=== PATIENT | male | born 1940 | race Caucasian/White ===

== ENCOUNTER 2016-08-04 13:58 | Emergency (ER) | payer MEDICARE, OTHER ==
[2016-08-04 14:06] VITALS: BP 153/82
--- NOTE | 2016-08-04 14:14 | ER Document Report ---
ED Medical Screen (RME) - General Stated Complaint: HEAD INJURY FROM FALL Mode of Arrival: Ambulatory Information source: Patient Notes: Pt presents to the emergency department with laceration to the top of his head. Patient was standing on a chair and fell over and hit his head. No change in LOC. Reports tetanus is up-to-date. I have greeted and performed a rapid initial assessment of this patient. A comprehensive ED assessment and evaluation of the patient, analysis of test results and completion of the medical decision making process will be conducted by additional ED providers. TRAVEL OUTSIDE OF THE [place] IN LAST 30 DAYS: No - Related Data Allergies/Adverse Reactions: No Known Allergies Allergy (Verified 12/08/15 08:26) Past Medical History - Past Medical History Cardiac Medical History: Reports: Hx Heart Attack, Hx Hypertension Denies: Hx Coronary Artery Disease Pulmonary Medical History: Reports: Hx Asthma Denies: Hx Bronchitis, Hx COPD, Hx Pneumonia Neurological Medical History: Denies: Hx Cerebrovascular Accident, Hx Seizures Musculoskeltal Medical History: Reports Hx Arthritis Past Surgical History: Denies: Hx Pacemaker - Immunizations Hx Diphtheria, Pertussis, Tetanus Vaccination: No Physical Exam - Vital signs Vitals: Temp Pulse Resp BP Pulse Ox 98.1 F 102 H 14 153/82 H 97 08/04/16 14:05 08/04/16 14:05 08/04/16 14:05 08/04/16 14:05 08/04/16 14:05 Course - Vital Signs Vital signs: Temp Pulse Resp BP Pulse Ox 98.1 F 102 H 14 153/82 H 97 08/04/16 14:05 08/04/16 14:05 08/04/16 14:05 08/04/16 14:05 08/04/16 14:05
--- NOTE | 2016-08-04 18:00 | ER Document Report ---
ED Head/Face/Scalp Injury - General Chief Complaint: Laceration Stated Complaint: HEAD INJURY FROM FALL Mode of Arrival: Ambulatory Notes: The patient is a 75-year-old male who presents after he fell off 2 steps of a ladder and hit the top of his head on a sharp table corner. He is not on any blood thinners and he did not have LOC. Denies heavy bleeding, numbness, tingling, headache, blurry vision, chest pain, shortness of breath, syncope or neck pain. TRAVEL OUTSIDE OF THE [place] IN LAST 30 DAYS: No - Related Data Allergies/Adverse Reactions: No Known Allergies Allergy (Verified 08/04/16 14:13) Past Medical History - General Information source: Patient - Social History Smoking Status: Never Smoker Chew tobacco use (# tins/day): No Frequency of alcohol use: None Drug Abuse: None Family History: Reviewed & Not Pertinent Patient has suicidal ideation: No Patient has homicidal ideation: No - Past Medical History Cardiac Medical History: Reports: Hx Heart Attack, Hx Hypertension Denies: Hx Coronary Artery Disease Pulmonary Medical History: Reports: Hx Asthma Denies: Hx Bronchitis, Hx COPD, Hx Pneumonia Neurological Medical History: Denies: Hx Cerebrovascular Accident, Hx Seizures Renal/ Medical History: Denies: Hx Peritoneal Dialysis Musculoskeltal Medical History: Reports Hx Arthritis Past Surgical History: Denies: Hx Pacemaker - Immunizations Hx Diphtheria, Pertussis, Tetanus Vaccination: No Hx Pneumococcal Vaccination: 05/27/12 Review of Systems - Review of Systems Notes: REVIEW OF SYSTEMS: CONSTITUTIONAL: -fevers, -chills EENT: -eye pain, -difficulty swallowing, -nasal congestion CARDIOVASCULAR:-chest pain, -syncope. RESPIRATORY: -cough, -SOB GASTROINTESTINAL: -abdominal pain, -nausea, -vomiting, -diarrhea GENITOURINARY: -dysuria, -hematuria MUSCULOSKELETAL: -back pain, -neck pain SKIN: +scalp laceration, -rash or skin lesions. HEMATOLOGIC: -easy bruising or bleeding. LYMPHATIC: -swollen, enlarged glands. NEUROLOGICAL: -altered mental status or loss of consciousness, -headache, - neurologic symptoms PSYCHIATRIC: -anxiety, -depression. ALL OTHER SYSTEMS REVIEWED AND NEGATIVE. Physical Exam - Vital signs Vitals: Temp Pulse Resp BP Pulse Ox 98.1 F 102 H 14 153/82 H 97 08/04/16 14:05 08/04/16 14:05 08/04/16 14:05 08/04/16 14:05 08/04/16 14:05 - Notes Notes: PHYSICAL EXAMINATION: GENERAL: Well-appearing, well-nourished and in no acute distress. HEAD: 4 cm linear laceration over top of scalp, no active bleeding EYES: Pupils equal round and reactive to light, extraocular movements intact, sclera anicteric, conjunctiva are normal. ENT: nares patent, oropharynx clear without exudates. Moist mucous membranes. NECK: Normal range of motion, supple without lymphadenopathy LUNGS: Breath sounds clear to auscultation bilaterally and equal. No wheezes rales or rhonchi. HEART: Regular rate and rhythm without murmurs ABDOMEN: Soft, nontender, normoactive bowel sounds. No guarding, no rebound. No masses appreciated. EXTREMITIES: Normal range of motion, no pitting or edema. No cyanosis. NEUROLOGICAL: Cranial nerves grossly intact. Normal speech, normal gait. Normal sensory, motor, and reflex exams. PSYCH: Normal mood, normal affect. Course - Re-evaluation Re-evalutation: Head CT does not show any acute intracranial abnormalities. Tetanus is up-to- date. Superficial linear laceration on scalp repaired with Dermabond because patient did not want sutures or frank. No neurologic symptoms and he did not have LOC. Fall strictly mechanical in nature. Given return precautions and he understands. - Vital Signs Vital signs: Temp Pulse Resp BP Pulse Ox 98.1 F 102 H 14 153/82 H 97 08/04/16 14:05 08/04/16 14:05 08/04/16 14:05 08/04/16 14:05 08/04/16 14:05 Procedures - Laceration/Wound Repair Right Upper Head Wound length (cm): 4 Wound's Depth, Shape: Superficial Wound explored: Clean Irrigated w/ Saline (mLs): 250 Wound Repaired With: Dermabond Layer Closure?: No Post-procedure NV exam normal: Yes Complications: No Discharge - Discharge Clinical Impression: Laceration of scalp Qualifiers: Encounter type: initial encounter Qualified Code(s): S01.01XA - Laceration without foreign body of scalp, initial encounter Head injury Qualifiers: Encounter type: initial encounter Qualified Code(s): S09.90XA - Unspecified injury of head, initial encounter Condition: Good Disposition: HOME, SELF-CARE Additional Instructions: NON-SUTURED LACERATION: Your laceration did not require suturing. Some lacerations cannot be sutured because of increased infection risk, while others simply don't need stitches because they are shallow or very short. Your injury should be protected while it heals. Usually complete healing takes 10 to 14 days. Keep the dressing clean and dry, and change it every day. If you notice increasing pain, redness, swelling, drainage, or tender lumps in the armpit or groin above the injury, infection may be present. You should call the doctor at once. SOAP CLEANSING: Gently wash the wound daily using a mild soap (like Ivory, Phisoderm, Neutrogena). Use warm water, rubbing gently until all debris, ooze, and crusting have been washed from the wound. Allow to dry briefly (about 10 minutes) after cleaning. Repeat this cleansing at least three times a day for the first two days and then once or twice a day. ANTIBIOTIC OINTMENT PROTECTION: Your wounds are such that dressing them is not practical or optional. After cleansing, you should apply a thin coating of antibiotic ointment ( Bacitracin, not Neosporin) to the wounds at least three times daily. This lessens infection risk, and may decrease the amount of scarring. Use a q-tip or dull butter knife, not your finger, to apply this ointment. Any debris or ooze which builds up in the ointment should be gently rubbed off with a sterile gauze pad. Harder crusting may need to be gently scrubbed off with a clean wash cloth with soap and warm water, perhaps applying a warm, wet wash cloth to the wound for ten minutes first. Development of redness, severe itching, or blistering may mean allergy to the ointment. See the doctor. FOLLOW-UP CARE: If you have been referred to another physician for follow-up care, call that physicians office for an appointment as you were instructed. If you experience a significant change in your laceration, or if you are concerned there may be an infection (swelling, redness, drainage, increasing tenderness, red streaks, tender lumps in the armpit or groin above the laceration, or fever) , return to the Emergency Department immediately re-evaluation. Referrals: CASSIE ARGUETA MD [Primary Care Provider] - Follow up as needed
== END 2016-08-04 18:10 | disposition home or self-care (01) ==
LOC: ER 13:58
PROC: 0HQ0XZZ Repair Scalp Skin, External Approach (ICD-10-PCS; principal; 2016-08-04)
DX: S09.90XA Unspecified injury of head, initial encounter (principal); S01.01XA Laceration without foreign body of scalp, initial encounter; W19.XXXA Unspecified fall, initial encounter
CPT/HCPCS: 70450; 99283

== ENCOUNTER 2016-09-12 06:50 | Day surgery (SDC) | payer MEDICARE, OTHER ==
[~2016-09-12 06:50] MED LIST: KETOROLAC TROMETHAMINE 0.45% 4 DROP/0.4 ML DROPERETTE OD PRN
[2016-09-12] MEDS ORDERED: TOBRAMYCIN SULFATE/DEXAMETH OPH OINTMENT 3.5 GM ONE (07:12)
[2016-09-12] MEDS ORDERED: CHONDR SU A NA/HYALUR INTRAOC KIT (SURGICARE) ONE (07:12)
[2016-09-12] MEDS ORDERED: LIDOCAINE 1% INJ-PF (10 MG/ML) 30 ML SDV ONE (07:12)
[2016-09-12] MEDS ORDERED: EPINEPHRINE INJ/PF 1 MG/1 ML AMPULE ONE (07:12)
[2016-09-12] MEDS: TETRACAINE HCL 0.5% OPH SOLN 0.6 ML DROPERETTE OD PRN ×3 (07:15→07:49)
[2016-09-12] MEDS: TROPICAMIDE 1% OPH SOLN 3 ML OD PRN ×3 (07:16→07:38)
[2016-09-12] MEDS: CYCLOPENTOLATE 0.2%/PHENYLEPHRINE 1% OPH SOLN 2 ML OD PRN ×3 (07:16→07:39)
[2016-09-12] MEDS: BESIFLOXACIN HCL 0.6% OPH SUSP 5 ML BOTTLE OD PRN ×3 (07:16→08:13)
[2016-09-12] MEDS ORDERED: FENTANYL CITRATE INJ/PF 100 MCG/2 ML AMPUL ONE (07:38)
[2016-09-12] MEDS ORDERED: MIDAZOLAM 2 MG/2 ML INJ ONE (07:38)
== END 2016-09-12 08:49 | disposition home or self-care (01) ==
LOC: SC 06:50
PROVIDERS: ATTEND Ophthalmology
PROC: 08RJ3JZ Replacement of Right Lens with Synthetic Substitute, Percutaneous Approach (ICD-10-PCS; principal; 2016-09-12 07:45)
DX: H25.11 Age-related nuclear cataract, right eye (principal); J44.9 Chronic obstructive pulmonary disease, unspecified; I25.10 Atherosclerotic heart disease of native coronary artery without angina pectoris; K21.9 Gastro-esophageal reflux disease without esophagitis; E78.00 Pure hypercholesterolemia, unspecified; M19.90 Unspecified osteoarthritis, unspecified site; E05.90 Thyrotoxicosis, unspecified without thyrotoxic crisis or storm; I10 Essential (primary) hypertension; Z79.51 Long term (current) use of inhaled steroids; Z79.82 Long term (current) use of aspirin; Z79.899 Other long term (current) drug therapy
CPT/HCPCS: 66984; V2630; J2250; J3490 ×3; A9270; J0171; J3010; 142

== ENCOUNTER 2016-09-26 06:21 | Day surgery (SDC) | payer MEDICARE, OTHER ==
[~2016-09-26 06:21] MED LIST changes: +BUPIVACAINE HCL 0.75% INJ/PF (7.5 MG/1 ML) 10 ML SDV OS PRN; -KETOROLAC TROMETHAMINE 0.45% 4 DROP/0.4 ML DROPERETTE OD PRN; +KETOROLAC TROMETHAMINE 0.45% 4 DROP/0.4 ML DROPERETTE OS PRN
[2016-09-26] MEDS: TROPICAMIDE 1% OPH SOLN 3 ML OS PRN ×3 (06:48→07:09)
[2016-09-26] MEDS: BESIFLOXACIN HCL 0.6% OPH SUSP 5 ML BOTTLE OS PRN ×4 (06:48→07:53)
[2016-09-26] MEDS: CYCLOPENTOLATE 0.2%/PHENYLEPHRINE 1% OPH SOLN 2 ML OS PRN ×3 (06:48→07:09)
[2016-09-26] MEDS: TETRACAINE HCL 0.5% OPH SOLN 0.6 ML DROPERETTE OS PRN ×3 (06:49→07:31)
[2016-09-26] MEDS ORDERED: EPINEPHRINE INJ/PF 1 MG/1 ML AMPULE ONE (07:13)
[2016-09-26] MEDS ORDERED: TOBRAMYCIN SULFATE/DEXAMETH OPH OINTMENT 3.5 GM ONE (07:13)
[2016-09-26] MEDS ORDERED: CHONDR SU A NA/HYALUR INTRAOC KIT (SURGICARE) ONE (07:13)
[2016-09-26] MEDS ORDERED: LIDOCAINE 1% INJ-PF (10 MG/ML) 30 ML SDV ONE (07:13)
[2016-09-26] MEDS ORDERED: MIDAZOLAM 2 MG/2 ML INJ ONE ×2 (07:17)
== END 2016-09-26 08:35 | disposition home or self-care (01) ==
LOC: SC 06:21
PROVIDERS: ATTEND Ophthalmology
PROC: 08RJ3JZ Replacement of Right Lens with Synthetic Substitute, Percutaneous Approach (ICD-10-PCS; principal; 2016-09-26 07:30)
DX: H25.12 Age-related nuclear cataract, left eye (principal); M19.90 Unspecified osteoarthritis, unspecified site; Z96.1 Presence of intraocular lens; I25.10 Atherosclerotic heart disease of native coronary artery without angina pectoris; E78.00 Pure hypercholesterolemia, unspecified; E05.90 Thyrotoxicosis, unspecified without thyrotoxic crisis or storm; J44.9 Chronic obstructive pulmonary disease, unspecified; Z79.82 Long term (current) use of aspirin; Z79.899 Other long term (current) drug therapy; Z79.51 Long term (current) use of inhaled steroids
CPT/HCPCS: 66984; V2630; J2250; J3490 ×3; A9270; J0171; 142

== ENCOUNTER 2017-05-31 10:13 | Emergency (ER) | payer MEDICARE, OTHER ==
[2017-05-31] MEDS ORDERED: ASPIRIN 81 MG TABLET, CHEWABLE PO ONE (11:21)
--- NOTE | 2017-05-31 11:53 | ER Document Report ---
ED Medical Screen (RME) - General Chief Complaint: Chest Pain Stated Complaint: CHEST PAIN Time Seen by Provider: 05/31/17 11:12 Mode of Arrival: Ambulatory Information source: Patient Notes: 76-year-old male presents with complaints of chest pain intermittent which he has had in the past as well as concerns for left arm injury. Pt was seen at [facility] noted ot have fractures, pt given ortho referral but unable to og to [place] I have greeted and performed a rapid initial assessment of this patient. A comprehensive ED assessment and evaluation of the patient, analysis of test results and completion of the medical decision making process will be conducted by additional ED providers. PHYSICAL EXAMINATION: GENERAL: Well-appearing, well-nourished and in no acute distress. HEAD: Atraumatic, normocephalic. EYES: Pupils equal round extraocular movements intact, conjunctiva are normal. ENT: Nares patent NECK: Normal range of motion LUNGS: No respiratory distress Musculoskeletal: left arm in sling NEUROLOGICAL: Normal speech, normal gait. PSYCH: Normal mood, normal affect. SKIN: Warm, Dry, normal turgor, no rashes or lesions noted. TRAVEL OUTSIDE OF THE [place] IN LAST 30 DAYS: No - Related Data Allergies/Adverse Reactions: No Known Allergies Allergy (Verified 05/31/17 11:13) Home Medications: Current Home Medications Armodafinil [Nuvigil] 150 mg PO DAILYP PRN 05/31/17 [History] Omeprazole 20 mg PO DAILYP PRN 05/31/17 [History] Tadalafil [Cialis] 5 mg PO DAILY 05/31/17 [History] Tiotropium [place] [Spiriva Respimat] 1 spray IH DAILY 05/31/17 [History] Past Medical History - Social History Chew tobacco use (# tins/day): No Frequency of alcohol use: None Drug Abuse: None - Past Medical History Cardiac Medical History: Reports: Hx Heart Attack - showed on ekg 2006, Hx Hypertension Denies: Hx Coronary Artery Disease Pulmonary Medical History: Reports: Hx Asthma Denies: Hx Bronchitis, Hx COPD, Hx Pneumonia Neurological Medical History: Denies: Hx Cerebrovascular Accident, Hx Seizures Renal/ Medical History: Denies: Hx Peritoneal Dialysis GI Medical History: Denies: Hx Hepatitis, Hx Hiatal Hernia, Hx Ulcer Musculoskeltal Medical History: Reports Hx Arthritis Infectious Medical History: Denies: Hx Hepatitis Past Surgical History: Denies: Hx Open Heart Surgery, Hx Pacemaker - Immunizations Hx Diphtheria, Pertussis, Tetanus Vaccination: No Physical Exam - Vital signs Vitals: Temp Pulse Resp BP Pulse Ox 97.9 F 105 H 20 122/64 93 05/31/17 10:34 05/31/17 10:34 05/31/17 10:34 05/31/17 10:34 05/31/17 10:34 Course - Vital Signs Vital signs: Temp Pulse Resp BP Pulse Ox 97.9 F 105 H 20 122/64 93 05/31/17 10:34 05/31/17 10:34 05/31/17 10:34 05/31/17 10:34 05/31/17 10:34
--- NOTE | 2017-05-31 12:35 | RADIOLOGY REPORT (SQ) ---
EXAM DESCRIPTION: CHEST SINGLE VIEW COMPLETED DATE/TIME: 05/31/2017 12:03 pm REASON FOR STUDY: chest pain COMPARISON: CT chest 06/18/2014 EXAM PARAMETERS: NUMBER OF VIEWS: One view. TECHNIQUE: Single frontal radiographic view of the chest acquired. RADIATION DOSE: NA LIMITATIONS: None. FINDINGS: LUNGS AND PLEURA: Lungs appear clear except for minor linear atelectatic marking left lung base. No consolidation or pleural effusion. MEDIASTINUM AND HILAR STRUCTURES: The stable. Calcified ectatic aorta. HEART AND VASCULAR STRUCTURES: Heart normal in size. Normal vasculature. BONES: No acute findings. HARDWARE: None in the chest. OTHER: No other significant finding. IMPRESSION: Nothing acute other than linear atelectatic marking left lung base. TECHNICAL DOCUMENTATION: JOB ID: [id number] [employer]- All Rights Reserved
--- NOTE | 2017-05-31 13:15 | RADIOLOGY REPORT (SQ) ---
EXAM DESCRIPTION: SHOULDER LEFT 2 OR MORE VIEWS COMPLETED DATE/TIME: 05/31/2017 12:50 pm REASON FOR STUDY: left shoulder COMPARISON: None. NUMBER OF VIEWS: Three views. TECHNIQUE: Internal rotation, external rotation, and Y view images acquired of the left shoulder. LIMITATIONS: None. FINDINGS: MINERALIZATION: Normal. BONES: A fracture seen the left femoral neck, with some impaction and comminution. No dislocation fr om the glenoid JOINTS: No dislocation. VISUALIZED LUNGS AND RIBS: Linear atelectasis left base. SOFT TISSUES: No metallic foreign bodies. OTHER: No other significant finding. IMPRESSION: Fracture left femoral neck with impaction and comminution. TECHNICAL DOCUMENTATION: JOB ID: [id number] [employer]- All Rights Reserved
[2017-05-31 13:27] LABS: ABSOLUTE BASOPHILS # (AUTO) 0.1 10^3/uL (0.0-0.2); ABSOLUTE EOSINOPHILS # (AUTO) 0.4 10^3/uL (0.0-0.6); ABSOLUTE NEUT (AUTO) 6.2 10^3/uL (1.7-8.2); BASOPHILS % (AUTO) 0.9 % (0-2); HEMATOCRIT 37.2 % (37.9-51.0); HEMOGLOBIN 12.4 g/dL (13.5-17.0); LYMPHOCYTES % (AUTO) 11.2 % (13-45); MEAN CORPUSCULAR HEMOGLOBIN 28.8 pg (27.0-33.4); MEAN CORPUSCULAR HGB CONC 33.4 g/dL (32.0-36.0); MEAN CORPUSCULAR VOLUME 86 fl (80-97); MONOCYTES % (AUTO) 11.3 % (3-13); PLATELET COUNT 323 10^3/uL (150-450); RED BLOOD COUNT 4.31 10^6/uL (4.35-5.55); RED CELL DISTRIBUTION WIDTH 14.4 % (11.5-14.0); SEGMENTED NEUTROPHILS % (AUTO) 71.6 % (42-78); TOTAL CELLS COUNTED % (AUTO) 100 %; WHITE BLOOD COUNT 8.7 10^3/uL (4.0-10.5)
[2017-05-31 13:43] LABS: ALANINE AMINOTRANSFERASE 39 U/L (21-72); ALBUMIN 3.6 g/dL (3.5-5.0); ALKALINE PHOSPHATASE 96 U/L (38-126); ANION GAP 8 (5-19); ASPARTATE AMINO TRANSFERASE 35 U/L (17-59); BILIRUBIN,DIRECT 0.3 mg/dL (0.0-0.4); BILIRUBIN,TOTAL 0.8 mg/dL (0.2-1.3); BLOOD UREA NITROGEN 12 mg/dL (7-20); CARBON DIOXIDE 33 mmol/L (22-30); CHLORIDE 96 mmol/L (98-107); CREATINE KINASE 80 U/L (55-170); GLUCOSE 104 mg/dL (75-110); POTASSIUM 4.1 mmol/L (3.6-5.0); TOTAL PROTEIN 6.1 g/dL (6.3-8.2)
[2017-05-31 14:09] LABS: CREATINE KINASE MB 1.02 ng/mL (<4.55)
[2017-05-31 14:13] LABS: TROPONIN I < 0.012 ng/mL
--- NOTE | 2017-05-31 14:34 | ER Document Report ---
ED General - General Chief Complaint: Chest Pain Stated Complaint: CHEST PAIN Time Seen by Provider: 05/31/17 11:12 Mode of Arrival: Ambulatory TRAVEL OUTSIDE OF THE [place] IN LAST 30 DAYS: No - HPI Patient complains to provider of: Right-sided chest pain left shoulder pain Notes: Patient states right-sided chest pain ongoing for approximately last 2 3 days. Patient states left shoulder pain ongoing for approximately a week. Patient states he did have a fall tripping over his own feet did get a naval had a x- ray and CAT scan performed showing a severely fractured left humerus states that he is supposed to follow-up with orthopedics however they had not called him to schedule an appointment yet. Patient otherwise states intermittent right -sided chest pain since that episode. Denies any exacerbating or relieving factors. Patient otherwise resting comfortably ambulating from the bathroom upon my evaluation. Denies any fevers chills nausea vomiting diarrhea. Patient currently chest pain-free abdominal pain. free - Related Data Allergies/Adverse Reactions: No Known Allergies Allergy (Verified 05/31/17 11:13) Home Medications: Current Home Medications Armodafinil [Nuvigil] 150 mg PO DAILYP PRN 05/31/17 [History] Omeprazole 20 mg PO DAILYP PRN 05/31/17 [History] Tadalafil [Cialis] 5 mg PO DAILY 05/31/17 [History] Tiotropium [place] [Spiriva Respimat] 1 spray IH DAILY 05/31/17 [History] Past Medical History - General Information source: Patient - Social History Smoking Status: Former Smoker Chew tobacco use (# tins/day): No Frequency of alcohol use: None Drug Abuse: None Family History: Reviewed & Not Pertinent Patient has suicidal ideation: No Patient has homicidal ideation: No - Past Medical History Cardiac Medical History: Reports: Hx Heart Attack - showed on ekg 2006, Hx Hypertension Denies: Hx Coronary Artery Disease Pulmonary Medical History: Reports: Hx Asthma Denies: Hx Bronchitis, Hx COPD, Hx Pneumonia Neurological Medical History: Denies: Hx Cerebrovascular Accident, Hx Seizures Renal/ Medical History: Denies: Hx Peritoneal Dialysis GI Medical History: Denies: Hx Hepatitis, Hx Hiatal Hernia, Hx Ulcer Musculoskeltal Medical History: Reports Hx Arthritis Infectious Medical History: Denies: Hx Hepatitis Past Surgical History: Denies: Hx Open Heart Surgery, Hx Pacemaker - Immunizations Hx Diphtheria, Pertussis, Tetanus Vaccination: No Hx Pneumococcal Vaccination: 05/27/12 Review of Systems - Review of Systems Constitutional: No symptoms reported EENT: No symptoms reported Cardiovascular: Chest pain Respiratory: No symptoms reported Gastrointestinal: No symptoms reported Genitourinary: No symptoms reported Male Genitourinary: No symptoms reported Musculoskeletal: Other - Left shoulder pain Skin: No symptoms reported Hematologic/Lymphatic: No symptoms reported Neurological/Psychological: No symptoms reported Physical Exam - Vital signs Vitals: Temp Pulse Resp BP Pulse Ox 97.9 F 105 H 20 122/64 93 05/31/17 10:34 05/31/17 10:34 05/31/17 10:34 05/31/17 10:34 05/31/17 10:34 Interpretation: Normal - General General appearance: Appears well, Alert - HEENT Head: Normocephalic, Atraumatic Eyes: Normal Pupils: PERRL - Respiratory Respiratory status: No respiratory distress Chest status: Nontender Breath sounds: Normal Chest palpation: Normal - Cardiovascular Rhythm: Regular Heart sounds: Normal auscultation Murmur: No - Abdominal Inspection: Normal Distension: No distension Bowel sounds: Normal Tenderness: Nontender Organomegaly: No organomegaly - Back Back: Normal, Nontender - Extremities General upper extremity: Other - Patient has left shoulder in sling. Capillary refill is intact or swelling of the left hand. Limited range of motion due to pain. Right side is unaffected. General lower extremity: Normal inspection, Nontender, Normal color, Normal ROM , Normal temperature, Normal weight bearing. No: Melba's sign - Neurological Neuro grossly intact: Yes Cognition: Normal Orientation: AAOx4 [place] Coma Scale Eye Opening: Spontaneous [place] Coma Scale Verbal: Oriented [place] Coma Scale Motor: Obeys Commands [place] Coma Scale Total: 15 Speech: Normal Motor strength normal: LUE, RUE, LLE, RLE Sensory: Normal - Psychological Associated symptoms: Normal affect, Normal mood - Skin Skin Temperature: Warm Skin Moisture: Dry Skin Color: Normal Course - Re-evaluation Re-evalutation: 05/31/17 15:35 The patient has atypical chest pain as the patient's chest pain is not suggestive of pulmonary embolus, cardiac ischemia, aortic dissection, or other serious etiology. Given the extremely low risk of these diagnoses further testing and evaluation for these possibilities does not appear to be indicated at this time. The patient has been instructed to return if the symptoms worsen or change in any way. X-rays performed showing a proximal humeral fracture. I did discuss with orthopedic converter operator who graciously agreed to see the patient in clinic patient was given clinic information and told to follow-up. Patient was discharged home. - Vital Signs Vital signs: Temp Pulse Resp BP Pulse Ox 97.9 F 105 H 17 100/67 93 05/31/17 10:34 05/31/17 10:34 05/31/17 14:00 05/31/17 12:29 05/31/17 14:00 - Laboratory Result Diagrams: 05/31/17 13:13 05/31/17 13:13 Laboratory results interpreted by me: 05/31/17 05/31/17 13:13 13:13 RBC 4.31 L Hgb 12.4 L Hct 37.2 L RDW 14.4 H Lymphocytes % 11.2 L Chloride 96 L Carbon Dioxide 33 H Total Protein 6.1 L Discharge - Discharge Clinical Impression: Chest wall pain Left humeral fracture Qualifiers: Encounter type: initial encounter Humerus Location: proximal Fracture type: closed Fracture morphology: unspecified fracture morphology Qualified Code(s): S42.202A - Unspecified fracture of upper end of left humerus, initial encounter for closed fracture Condition: Good Disposition: HOME, SELF-CARE Instructions: Chest Wall Pain ([facility]), Chest Pain of Unclear Cause ([facility]), Fracture Proximal Humerus Additional Instructions: At this time your laboratory studies chest x-ray did not show any significant pathology. Your shoulder x-ray does show a humeral fracture. I did discuss with Dr. murguia. Please contact Dr. Posada who works with Dr. Salas for an appointment more likely will have to call them on Saturday. Please let them know that she was seen in the ER At [facility]. The ER physician discussed your case with Dr. murguia who recommended an appointment next week. Continue take Tylenol Motrin for pain control return to ER symptoms worsen. Referrals: CASSIE ARGUETA MD [Primary Care Provider] - Follow up as needed RADHA MILLAN MD [ACTIVE STAFF] - Follow up as needed CATALINA SALAS MD [ACTIVE STAFF] - Follow up as needed
[2017-05-31 14:42] VITALS: BP 100/67
--- NOTE | 2017-06-01 11:39 | EKG REPORT ---
SEVERITY:- ABNORMAL ECG - SINUS TACHYCARDIA LEFT ANTERIOR FASCICULAR BLOCK CONSIDER ANTEROSEPTAL INFARCT : Confirmed by: Fabian Mcmillan 01-Jun-2017 11:38:51
== END 2017-05-31 14:45 | disposition home or self-care (01) ==
LOC: ER 10:13
DX: S42.202A Unspecified fracture of upper end of left humerus, initial encounter for closed fracture (principal); R07.89 Other chest pain; M25.512 Pain in left shoulder; Z79.899 Other long term (current) drug therapy; Z87.891 Personal history of nicotine dependence; W19.XXXA Unspecified fall, initial encounter
CPT/HCPCS: 93005; 99285; 36415; 82553; 82550; 85025; 80053; 84484; 71045; 73030; 93010; A9270

== ENCOUNTER → 2017-10-03 | Outpatient (CLI) | payer MEDICARE, OTHER ==
--- NOTE | 2017-10-03 14:13 | RADIOLOGY REPORT (SQ) ---
EXAM DESCRIPTION: CT SINUSES FOR ENT COMPLETED DATE/TIME: 10/03/2017 10:08 am REASON FOR STUDY: FUSION NECK PAIN (M54.2), CHRONIC SINUSITIS (J32.9) M54.2 CERVICALGIA J32.9 CHRONIC SINUSITIS, UNSPECIFIED COMPARISON: None. TECHNIQUE: Noncontrast scanning through the paranasal sinuses using bone algorithm. Reconstructed MPR images reviewed. All images stored on PACS. Images acquired for image guided surgery. All CT scanners at this facility use dose modulation, iterative reconstruction, and/or weight based d osing when appropriate to reduce radiation dose to as low as reasonably achievable (ALARA). [facility]: Dose Right [facility]: CareDose [facility]: Dose Right [facility]: Teradose 4D [facility]: Upside RADIATION DOSE: mGy. FINDINGS: The paranasal sinuses are well developed status post bilateral maxillary antrectomies and uncinate resection. There is mucosal thickening in all the paranasal sinuses. There is fluid in the ethmoid sinuses. Nasofrontal recesses are completely opacified. Mild rightward deviation of the na marni septum. Thinning of the ethmoids. IMPRESSION: Chronic nunn sinusitis. TECHNICAL DOCUMENTATION: JOB ID: [id number] Quality ID # [id number]: Final reports with documentation of one or more dose reduction techniques (e.g., Au tomated exposure control, adjustment of the mA and/or kV according to patient size, use of iterative reconstruction technique) 2010 [employer]- All Rights Reserved Reading location - IP/workstation name: [email or web address]
--- NOTE | 2017-10-03 14:16 | RADIOLOGY REPORT (SQ) ---
EXAM DESCRIPTION: CT CERVICAL SPINE WITHOUT COMPLETED DATE/TIME: 10/03/2017 10:08 am REASON FOR STUDY: NECK PAIN (M54.2), CHRONIC SINUSITIS (J32.9) M54.2 CERVICALGIA J32.9 CHRONIC SIN USITIS, UNSPECIFIED COMPARISON: None. TECHNIQUE: Axial images acquired through the cervical spine without intravenous contrast. Images re viewed with lung, soft tissue and bone windows. Reconstructed coronal and sagittal MPR images review ed. Images stored on PACS. All CT scanners at this facility use dose modulation, iterative reconstruction, and/or weight based d osing when appropriate to reduce radiation dose to as low as reasonably achievable (ALARA). [facility]: Dose Right [facility]: CareDose [facility]: Dose Right [facility]: Teradose 4D [facility]: [employer] RADIATION DOSE: CT Rad equipment meets quality standard of care and radiation dose reduction techniq ues were employed. CTDIvol: 20.6 mGy. DLP: 466 mGy-cm. mGy. LIMITATIONS: None. FINDINGS: ALIGNMENT: Grade 1 anterolisthesis of C4 relative to C5. MINERALIZATION: Normal. VERTEBRAL BODIES: No fractures or dislocation. DISCS: Multilevel disc space narrowing with osteophytes. FACETS, LATERAL MASSES, POSTERIOR ELEMENTS: Uncovertebral arthropathy. Neural foraminal stenosis at multiple levels, most severe on the right at C4-5. HARDWARE: None in the spine. VISUALIZED RIBS: No fractures. LUNG APICES AND SOFT TISSUES: No significant or acute findings. OTHER: No other significant finding. IMPRESSION: Cervical disc disease. Neural foraminal stenosis. No significant central stenosis. TECHNICAL DOCUMENTATION: JOB ID: [id number] Quality ID # [id number]: Final reports with documentation of one or more dose reduction techniques (e.g., Au tomated exposure control, adjustment of the mA and/or kV according to patient size, use of iterative reconstruction technique) 2010 [employer]- All Rights Reserved Reading location - IP/workstation name: [email or web address]
== END ==
LOC: RAD 09:33
PROVIDERS: ATTEND Otolaryngology
DX: M54.2 Cervicalgia (principal); J32.9 Chronic sinusitis, unspecified
CPT/HCPCS: 70486; 72125

== ENCOUNTER → 2017-12-31 | Outpatient (CLI) | payer MEDICARE, OTHER ==
--- NOTE | 2017-12-31 16:07 | RADIOLOGY REPORT (SQ) ---
EXAM DESCRIPTION: BARIUM SWALLOW ESOPHAGUS COMPLETED DATE/TIME: 12/31/2017 9:25 am REASON FOR STUDY: DYSPHAGIA (R13.10) R13.10 DYSPHAGIA, UNSPECIFIED COMPARISON: None. TECHNIQUE: Under fluoroscopic guidance, patient ingested effervescent granules followed by thick and thin barium. Fluoroscopic spot images and routine radiographic images acquired and stored on PACS. 12 MM BARIUM TABLET GIVEN: Yes. Tablet initially delayed in the left piriform sinus thin passed into the stomach without delay. LIMITATIONS: None. FLUOROSCOPY TIME: FLUORO TIME: 2.5 minute Multiple fluoroscopic images saved to PACS. FINDINGS: Small amount of tracheal aspiration. Small Zenker's diverticulum. There is a hiatal latonya ia. Moderate gastroesophageal reflux. Traction diverticulum in the gastroesophageal junction. IMPRESSION: 1. Hiatal hernia. Gastroesophageal reflux. No stricture identified. 2. Mild aspiration. Left lateral bulging of the piriform sinus where the barium tablet lodged for a few seconds. Consider speech pathology consultation. COMMENT: Quality ID 145: Final reports for procedures using fluoroscopy that document radiation exp osure indices, or exposure time and number of fluorographic images (if radiation exposure indices are not available) TECHNICAL DOCUMENTATION: JOB ID: [id number] [employer]- All Rights Reserved Reading location - IP/workstation name: [email or web address]
== END ==
LOC: RAD 08:45
PROVIDERS: ATTEND Otolaryngology
DX: K22.5 Diverticulum of esophagus, acquired (principal); K21.9 Gastro-esophageal reflux disease without esophagitis; K44.9 Diaphragmatic hernia without obstruction or gangrene; R13.10 Dysphagia, unspecified
CPT/HCPCS: 74220

== ENCOUNTER → 2018-01-30 | Outpatient (CLI) | payer MEDICARE, OTHER ==
--- NOTE | 2018-01-30 10:08 | RADIOLOGY REPORT (SQ) ---
EXAM DESCRIPTION: COOKIE SWALLOW COMPLETED DATE/TIME: 01/30/2018 9:21 am REASON FOR STUDY: DYSPHAGIA R13.10 DYSPHAGIA, UNSPECIFIED COMPARISON: Cookie swallow 10/22/2013 TECHNIQUE: Videofluoroscopic swallowing examination was performed in conjunction with speech patholo gy. Videofluoroscopic imaging was obtained and reviewed and these are the findings: RADIATION DOSE: Fluoro time 3.12 minutes 1 images saved to PACS. LIMITATIONS: None FINDINGS: The patient was brought into the fluoro room and placed upright on a modified barium swall ow chair. The patient was then given multiple consistencies mixed with barium to swallow under live fluoroscopic video guidance. According to the Speech Pathologist there was no penetration or aspirat ion. There is significant hang up of barium seen in the left piriform sinus. Also noted is a modera te impression on the upper esophagus from cricopharyngeus hypertrophy. There appears to be a small Z enker's diverticulum present. Please refer to the speech pathology report for further details. IMPRESSION: NO EVIDENCE OF PENETRATION OR ASPIRATION. SIGNIFICANT HANG UP OF BARIUM IN THE LEFT PIR IFORM SINUS.PLEASE SEE SPEECH PATHOLOGIST REPORT FOR OTHER FINDINGS AND RECOMMENDATIONS. COMMENT: NONE Quality ID 145: Final reports for procedures using fluoroscopy that document radiation exposure raymond good, or exposure time and number of fluorographic images (if radiation exposure indices are not avail able) TECHNICAL DOCUMENTATION: JOB ID: [id number] [employer]- All Rights Reserved Reading location - IP/workstation name: [email or web address] [id number]
--- NOTE | 2018-01-30 17:32 | ST Modified Barium Swallow ---
Recommendation - Recommendations Recommendations: Recommend outpatient dysphagia treatment to address swallowing strategies and exercises to improve pharyngeal phase swallow. Medical Diagnoses - Medical Diagnoses Medical Diagnosis Description & ICD-10 Code(s): Dysphagia, R13.10 Other Medical Diagnoses/Co-Morbidities: per patient report: Asthma, surgery for deviated septum, high blood pressure. ST Modified Barium Swallow - General Date: 01/30/18 Referring Physician: Dr. Shakeel Carney Risks/Precautions: Falls Date of Onset: 01/25/15 - approximate onset date, patient states issues has been going on for "a couple years" Reason for Referral: difficulty swallowing - History History obtained from: Patient -: Medical - Patient reports difficulty swallowing for "a couple years", no exact onset date given and no clear etiology. Patient reports having difficulty with "heavy foods" such as meats, and frequent throat clearing at meals. No history of frequent pneumonia or bronchitis. The patient states that he had a "swallow test" approximately 5 years ago, which showed "muscle on the left side was weak". Patient has not previously seen a speech pathologist, and there is no record of a prior modified barium swallow at this facility. EMR does show a prior barium swallow. Medications: per patient report: advair, proair, omeprazole. May not be complete medication list. Allergies: No known allergies. - Functional Status Prior Functional Status: INDEPENDENT: feeding - independent Current Functional Limitations: feeding - frequent difficulty swallowing - Subjective Patient/caregiver goal(s): better swallow Cognitive-Linguistic Function: WNL Speech Intelligibility: WNL - some hypernasality noted Current Nutritional Means: PO Current PO diet: Regular Current symptoms: Coughing, c/o Globus sensation Pain: Patient reports, 0/5 - Objective Assessment: Upright, Left Lateral, A-P Position - Food Trials Used Food trials used: Thin liquids, Pureed, Regular The patient: Was Able to Self Feed - Oral-Motor Skills Velo-pharyngeal function: Other - during oral mechanism exam, nasal emission of air was noted with patient held air in oral cavity. Some hypernasal speech patterns noted. No difficulty noted during swallowing with velopharyngeal closure. - Assessment Oral prep: Normal Labial closure: Adequate Leakage: None Mastication: Adequate Lingual Movement: Normal Oral stage: Normal for this Procedure - Pharyngeal Stage Initiation of Pharyngeal Stage Reflex: Normal Decreased laryngeal elevation: No Reduced Velopharyngeal Closure: no Reduced pressure generation: No reduced tongue-based retraction: No Pre-swallow pooling in valleculae: None Pre-Swallow pooling in pyriforms: None Reduced Thyro-Hyoid approximation: No Reduced epiglottic excursion: No Reduced pharyngeal peristalsis/contraction: No Multiple Swallows with: Ineffective Clearance Post-swallow residulas vallecular: None Post-Swallow residuals in pyriforms: Significant Reduced Cricopharyngeal opening: Yes Pharyngeal Stage Comments: Notable left side pyriform residue seen after the swallow with all textures, residue increases as texture increases. With head turn to left, residue reduced. Reduced UES opening also seen. Signs of small Zenker's also seen. - Fall Risk Assessment Medications/Conditions that increase fall risks include: Antidepressants, sedatives, anti-arrhythmic, diuretic, benzodiazipenes, neuroleptics. BP regulation problems, cardiac problems, balance or gait deficits, neurological problems. Fall Risk Actions Taken: No action needed - Behavioral Observations During evaluation process patient: was pleasant, was cooperative, able to answer questions, provided medical history - Treatment / Educational Needs: Treatment/Education Needs: Treatment consisted of patient education on the role of the Speech Pathologist. Patient's plan of care and golas were communicated as well as scheduling and attendance policies. Recommendations for initial home program were shared. Patient demonstrated understanding and verbalized agreement. - Impression/Summary Laryngeal Penetration: Yes, during swallow Consistency: Thin Tracheal Aspiration: no Effective compensatory strategies: head turn-left Ineffective compensatory strategies: hard swallow Patient presents with: Pharyngeal stage dysph., Severe Risk of Aspiration: Moderate - Recommendations Solid diet recommendations: Regular Liquid Diet Modification: Thin Strict aspiration precautions: Yes Pt/Family education and followup with MD: Yes Dysphagia therapy with RN RESEARCH: yes, dysphagia therapy Reflux Precautions: Taught to Patient Recommended techniques: Fully Upright During Meal, Small Bites and Sips, Alternate Bites/Sips, Head Turn to L/R, Chin Tuck to Swallow Information, Precautions and Recommendations: Patient (Written), Patient (Verbal ) - Plan of Care Summary: Recommend outpatient dysphagia treatment, plan of care to be established in clinical setting. Patient to follow-up with referring physician: Yes POC Procedures/Codes: pharyngeal exercises Strategies to optimize patient understanding include:: ongoing assessment of educational needs, implementation of educational strategies, and re-education. - - -: Thank you for the opportunity to work with this patient and his/her family. Should you have any questions about this patient's plan or progress, I can be reached at [phone]. Charge G Code? - - -: Yes [facility] Impairment Category - Swallowing Current G8996: 20-39% Impaired Goal G8997: CJ 20-39% Impaired Discharge G8998: 20-39% Impaired
== END ==
LOC: RAD 08:13
PROVIDERS: ATTEND Otolaryngology
DX: R13.10 Dysphagia, unspecified (principal)
CPT/HCPCS: 74230; 92611; G8996; G8997; G8998

== ENCOUNTER 2019-06-01 16:17 | Emergency (ER) | payer MEDICARE, OTHER ==
[2019-06-01] MEDS ORDERED: DIPH/PERTUSS(ACELL)/TETANUS VAC/PF 0.5 ML SYR (>=10YO) IM ONE (17:09)
--- NOTE | 2019-06-01 17:14 | ER Document Report ---
ED Medical Screen (RME) - General Chief Complaint: Fall Injury Stated Complaint: FALL/RIGHT ELBOW,ARM PAIN,HEAD PAIN Time Seen by Provider: 06/01/19 17:03 Primary Care Provider: TANYA POSADAS MD [Primary Care Provider] - Follow up as needed Information source: Patient Notes: Patient states he was going out to take the trash to straight and wound up on the ground. Patient states he does not recall tripping but states he also does not recall having a loss of consciousness. Patient is uncertain how he ended up the ground. Patient denies any chest pain nausea or vomiting. Patient denies any back tenderness. Patient with abrasion to right side of head. Patient with right shoulder and elbow tenderness. I have greeted and performed a rapid initial assessment of this patient. A comprehensive ED assessment and evaluation of the patient, analysis of test results and completion of the medical decision making process will be conducted by additional ED providers. TRAVEL OUTSIDE OF THE [place] IN LAST 30 DAYS: No - Related Data Allergies/Adverse Reactions: No Known Allergies Allergy (Verified 05/31/17 11:13) Past Medical History - Social History Frequency of alcohol use: None Drug Abuse: None - Past Medical History Cardiac Medical History: Reports: Hx Heart Attack - showed on ekg 2006, Hx Hypertension Denies: Hx Coronary Artery Disease Pulmonary Medical History: Reports: Hx Asthma Denies: Hx Bronchitis, Hx COPD, Hx Pneumonia Neurological Medical History: Denies: Hx Cerebrovascular Accident, Hx Seizures Renal/ Medical History: Denies: Hx Peritoneal Dialysis GI Medical History: Denies: Hx Hepatitis, Hx Hiatal Hernia, Hx Ulcer Musculoskeltal Medical History: Reports Hx Arthritis Infectious Medical History: Denies: Hx Hepatitis Past Surgical History: Denies: Hx Open Heart Surgery, Hx Pacemaker - Immunizations Hx Diphtheria, Pertussis, Tetanus Vaccination: No Physical Exam - General General appearance: Alert Notes: Abrasion to right side of head, tenderness to right shoulder joint with range of motion Doctor's Discharge - Discharge Referrals: TANYA POSADAS MD [Primary Care Provider] - Follow up as needed
[2019-06-01] MEDS ORDERED: OXYCODONE HCL IR 5 MG TABLET PO ONE (17:48)
--- NOTE | 2019-06-01 17:56 | ER Document Report ---
HPI - HPI Time Seen by Provider: 06/01/19 17:03 Pain Level: 4 Notes: Patient is a 78-year-old male with a history of hypertension frequent falls who presents complaining of right shoulder pain and right forehead abrasion status post fall prior to arrival. This was a witnessed event by his son who is accompanying him. Patient was carrying the trash out when he went to step to his side, his right foot got caught, stumbled, then fell. Patient landed on his right upper arm. This time immediately helped him back up thereafter. He has been able to ambulate since then without difficulty. He is acting behaving normally per son. Denies drug allergies. He is not on any blood thinning medications. No other concerns or complaints. Denies any headache, fever, neck pain, changes in vision/speech/mentation/hearing, URI, sore throat, chest pain, palpitations, syncope, cough, shortness of breath, wheeze, dyspnea, abdominal pain, nausea/vomiting/diarrhea, urinary retention, dysuria, hematuria, loss of control of bowel or bladder, numbness/tingling, saddle anesthesia, muscle paralysis, or rash. - ROS Systems Reviewed and Negative: Yes All other systems reviewed and negative - REPRODUCTIVE Reproductive: DENIES: : Past Medical History - General Information source: Patient - Social History Smoking Status: Unknown if Ever Smoked Frequency of alcohol use: None Drug Abuse: None Family History: Reviewed & Not Pertinent Patient has suicidal ideation: No Patient has homicidal ideation: No - Past Medical History Cardiac Medical History: Reports: Hx Heart Attack - showed on ekg 2006, Hx Hypertension Denies: Hx Coronary Artery Disease Pulmonary Medical History: Reports: Hx Asthma Denies: Hx Bronchitis, Hx COPD, Hx Pneumonia Neurological Medical History: Denies: Hx Cerebrovascular Accident, Hx Seizures Renal/ Medical History: Denies: Hx Peritoneal Dialysis GI Medical History: Denies: Hx Hepatitis, Hx Hiatal Hernia, Hx Ulcer Musculoskeletal Medical History: Reports Hx Arthritis Infectious Medical History: Denies: Hx Hepatitis Past Surgical History: Denies: Hx Open Heart Surgery, Hx Pacemaker - Immunizations Hx Diphtheria, Pertussis, Tetanus Vaccination: No Hx Pneumococcal Vaccination: 05/27/12 Vertical Provider Document - CONSTITUTIONAL Agree With Documented VS: Yes Notes: PHYSICAL EXAMINATION: GENERAL: Well-appearing, well-nourished and in no acute distress. A&Ox4. Answers questions appropriately. HEAD: Atraumatic, normocephalic. Non-tender. No henriquez sign EYES: Pupils equal round and reactive to light, extraocular movements intact, sclera anicteric, conjunctiva are normal. No raccoon eyes/entrapment ENT: EAC clear b/l. TM's intact b/l without erythema, fluid, or perforation. Nares patent and without discharge. oropharynx clear without exudates. No tonsilar hypertrophy or erythema. Moist mucous membranes. No sinus tenderness. No hemotympanum/CSF discharge. NECK: Normal range of motion, supple without lymphadenopathy. No rigidity. No midline tenderness. Chest: No flail chest. equal rise/fall. Non-tender LUNGS: Breath sounds clear to auscultation bilaterally and equal. No wheezes rales or rhonchi. HEART: Regular rate and rhythm without murmurs, rubs, gallops. ABDOMEN: Soft, nontender, nondistended abdomen. No guarding, no rebound. Normal bowel sounds present. No CVA tenderness bilaterally. Musculoskeletal: RUE: LROM at the shoulder due to pain. + tenderness rt proximal humerus. + superficial skin tear to the posterior prox forearm approx 5cm in length. N/V intact distal. Ext's otherwise b/l: FROM to passive/active. Strength 5+/5. No deficits noted. No other bony tenderness of extremities. Back: FROM to passive/active. Strength 5+/5. No vertebral point tenderness, stepoffs, or deformities. No other bony tenderness or ecchymosis. Extremities: No cyanosis, clubbing, or edema b/l. Peripheral pulses 2+. Capillary refill less than 2 seconds. NEUROLOGICAL: NIH 0. GCS 15. Cranial nerves grossly intact. Normal speech, normal gait. Normal sensory, motor exams. Reflexes 2+ b/l. NEVAEH's negative. Pronator drift negative. Heel/rahman, finger/nose wnl. PSYCH: Normal mood, normal affect. SKIN: see above - INFECTION CONTROL TRAVEL OUTSIDE OF THE [place] IN LAST 30 DAYS: No Course - Re-evaluation Re-evalutation: 06/01/19 19:08 Patient is an afebrile, well-hydrated, 78-year-old male who presents to the ED with a comminuted fx right humeral head. Vitals are acceptable without any significant tachycardia, tachypnea, or hypoxia. PE is otherwise unremarkable for any neurovascular compromise, obvious tendon/ligament rupture, open fracture, septic joint. NIH 0, GCS 15, cranial nerves grossly intact. EKG and imaging otherwise unremarkable. See XR result. Sling applied. Pt given tylenol and does not want anything stronger. Patient is nontoxic-appearing. Wound was cleansed and dressing placed. Wound instructions reviewed. Tdap updated today. No other labs or imaging warranted at this time based on H&P. Conservative measures otherwise for symptoms. Recheck with your PCM in 3-5 days. Call orthopedics tomorrow to schedule an appointment for further evaluation and management. Return to the ED with any worsening/concerning symptoms otherwise as reviewed in discharge. Patient is in agreement. - Vital Signs Vital signs: Temp Pulse Resp BP Pulse Ox 97.7 F 85 18 149/77 H 95 06/01/19 16:22 06/01/19 16:22 06/01/19 16:22 06/01/19 16:22 06/01/19 16:22 Discharge - Discharge Clinical Impression: Fracture of humeral head, right, closed Qualifiers: Encounter type: initial encounter Qualified Code(s): S42.291A - Other displaced fracture of upper end of right humerus, initial encounter for closed fracture Condition: Stable Disposition: HOME, SELF-CARE Additional Instructions: Rest, Ice, Compression, Elevation Use sling as directed Tylenol/ibuprofen as needed F/u with your PCP in 3-5 days for a recheck Call orthopedics tomorrow to schedule an appointment for further evaluation and management Return to the ED with any worsening symptoms and/or development of fever, headache, chest pain, palpitations, syncope, shortness of breath, trouble breathing, abdominal pain, n/v/d, muscle weakness/paralysis, numbness/tingling, swelling, redness, or other worsening symptoms that are concerning to you. Prescriptions: Ibuprofen [Motrin 800 mg Tablet] 800 mg PO Q8H PRN #15 tab PRN Reason: Forms: Elevated Blood Pressure Referrals: TANYA POSADAS MD [NO LOCAL MD] - Follow up as needed [facility] [Provider Group] - Follow up as needed KAELYN BYRNES JR, DO [ACTIVE PROVISIONAL STAFF] - Follow up in 3-5 days
[2019-06-01] MEDS ORDERED: ACETAMINOPHEN 325 MG TABLET ONE (18:04)
[2019-06-01] MEDS ORDERED: ACETAMINOPHEN 325 MG TABLET PO ONE (18:05)
--- NOTE | 2019-06-01 18:06 | RADIOLOGY REPORT (SQ) ---
EXAM DESCRIPTION: ELBOW RIGHT AP/LAT COMPLETED DATE/TIME: 06/01/2019 5:40 pm REASON FOR STUDY: fall COMPARISON: None. NUMBER OF VIEWS: Two views. TECHNIQUE: AP and lateral radiographic images acquired of the right elbow. LIMITATIONS: None. FINDINGS: MINERALIZATION: Normal. BONES: No acute fracture or dislocation. No worrisome bone lesions. JOINT: No effusion. SOFT TISSUES: No soft tissue swelling. No foreign body. OTHER: No other significant finding. IMPRESSION: NEGATIVE STUDY OF THE RIGHT ELBOW. NO RADIOGRAPHIC EVIDENCE OF ACUTE INJURY. TECHNICAL DOCUMENTATION: JOB ID: [id number] [employer]- All Rights Reserved Reading location - IP/workstation name: [email or web address] [id number]
--- NOTE | 2019-06-01 18:07 | RADIOLOGY REPORT (SQ) ---
EXAM DESCRIPTION: SHOULDER RIGHT 2 OR MORE VIEWS COMPLETED DATE/TIME: 06/01/2019 5:40 pm REASON FOR STUDY: fall COMPARISON: None. NUMBER OF VIEWS: Two views. TECHNIQUE: Frontal and lateral images acquired of the right shoulder. LIMITATIONS: Suboptimal positioning. FINDINGS: MINERALIZATION: Normal. BONES: Comminuted fracture of the humeral head. JOINTS: No dislocation. VISUALIZED LUNGS AND RIBS: No pneumothorax. No rib fracture. SOFT TISSUES: No radiopaque foreign body. OTHER: No other significant finding. IMPRESSION: COMMINUTED FRACTURE OF THE HUMERAL HEAD. LIMITED VISUALIZATION. TECHNICAL DOCUMENTATION: JOB ID: [id number] [employer]- All Rights Reserved Reading location - IP/workstation name: [email or web address]
--- NOTE | 2019-06-01 18:08 | RADIOLOGY REPORT (SQ) ---
EXAM DESCRIPTION: CHEST 2 VIEWS COMPLETED DATE/TIME: 06/01/2019 5:40 pm REASON FOR STUDY: fall, ?syncope COMPARISON: 05/31/2017. EXAM PARAMETERS: NUMBER OF VIEWS: two views TECHNIQUE: Digital Frontal and Lateral radiographic views of the chest acquired. RADIATION DOSE: NA LIMITATIONS: none FINDINGS: LUNGS AND PLEURA: No opacities, masses or pneumothorax. No pleural effusion. MEDIASTINUM AND HILAR STRUCTURES: No masses or contour abnormalities. HEART AND VASCULAR STRUCTURES: Heart normal size. No evidence for failure. BONES: Generally intact. Fracture of the right femoral head better visualized on separate exam. HARDWARE: Electronic device overlying the right chest with electrode extending into the right side of the neck. OTHER: No other significant finding. IMPRESSION: NO ACUTE RADIOGRAPHIC FINDING IN THE CHEST. TECHNICAL DOCUMENTATION: JOB ID: [id number] [employer]- All Rights Reserved Reading location - IP/workstation name: [email or web address]
--- NOTE | 2019-06-01 18:45 | RADIOLOGY REPORT (SQ) ---
EXAM DESCRIPTION: CT CERVICAL SPINE WITHOUT COMPLETED DATE/TIME: 06/01/2019 6:33 pm REASON FOR STUDY: fall COMPARISON: 10/03/2017. TECHNIQUE: Axial images acquired through the cervical spine without intravenous contrast. Images re viewed with lung, soft tissue and bone windows. Reconstructed coronal and sagittal MPR images review ed. Images stored on PACS. All CT scanners at this facility use dose modulation, iterative reconstruction, and/or weight based d osing when appropriate to reduce radiation dose to as low as reasonably achievable (ALARA). [facility]: Dose Right [facility]: CareDose [facility]: Dose Right [facility]: Teradose 4D [facility]: [employer] RADIATION DOSE: CT Rad equipment meets quality standard of care and radiation dose reduction techniq ues were employed. CTDIvol: 22.8 - 53.2 mGy. DLP: 1626 mGy-cm. mGy. LIMITATIONS: None. FINDINGS: ALIGNMENT: Anatomic. MINERALIZATION: Normal. VERTEBRAL BODIES: No fractures or dislocation. DISCS: Multilevel disc space narrowing with osteophytes. FACETS, LATERAL MASSES, POSTERIOR ELEMENTS: Facet arthropathy. No fractures. No dislocation. No ac yeyo findings. HARDWARE: None in the spine. VISUALIZED RIBS: No fractures. LUNG APICES AND SOFT TISSUES: No significant or acute findings. OTHER: No other significant finding. IMPRESSION: CHRONIC DEGENERATIVE CHANGES. NO ACUTE FINDINGS. TECHNICAL DOCUMENTATION: JOB ID: [id number] Quality ID # [id number]: Final reports with documentation of one or more dose reduction techniques (e.g., Au tomated exposure control, adjustment of the mA and/or kV according to patient size, use of iterative reconstruction technique) 2010 [employer]- All Rights Reserved Reading location - IP/workstation name: [email or web address]
--- NOTE | 2019-06-01 18:47 | RADIOLOGY REPORT (SQ) ---
EXAM DESCRIPTION: CT HEAD WITHOUT COMPLETED DATE/TIME: 06/01/2019 6:33 pm REASON FOR STUDY: fall, head injury, ?syncope COMPARISON: 08/04/2016. TECHNIQUE: Axial images acquired through the brain without intravenous contrast. Images reviewed wi th bone, brain and subdural windows. Additional sagittal and coronal reconstructions were generated. Images stored on PACS. All CT scanners at this facility use dose modulation, iterative reconstruction, and/or weight based d osing when appropriate to reduce radiation dose to as low as reasonably achievable (ALARA). [facility]: Dose Right [facility]: CareDose [facility]: Dose Right [facility]: Teradose 4D [facility]: [employer] RADIATION DOSE: mGy. LIMITATIONS: None. FINDINGS: VENTRICLES: Prominent. CEREBRUM: No masses. No hemorrhage. No midline shift. Areas of low density in the white matter mos t likely due to chronic micro-vascular ischemic change. No evidence for acute infarction. CEREBELLUM: No masses. No hemorrhage. No alteration of density. No evidence for acute infarction. EXTRAAXIAL SPACES: Mild age-related involutional change. No fluid collections. No masses. ORBITS AND GLOBE: No intra- or extraconal masses. Normal contour of globe without masses. CALVARIUM: No fracture. PARANASAL SINUSES: No fluid or mucosal thickening. SOFT TISSUES: No mass or hematoma. OTHER: No other significant finding. IMPRESSION: MILD CHRONIC CHANGES OF ATROPHY AND MICROVASCULAR ISCHEMIA. NO ACUTE PROCESS. EVIDENCE OF ACUTE STROKE: NO. TECHNICAL DOCUMENTATION: JOB ID: [id number] Quality ID # 436: Final reports with documentation of one or more dose reduction techniques (e.g., Au tomated exposure control, adjustment of the mA and/or kV according to patient size, use of iterative reconstruction technique) 2010 [employer]- All Rights Reserved Reading location - IP/workstation name: [email or web address]
[2019-06-01 19:29] VITALS: BP 122/58
--- NOTE | 2019-06-01 22:12 | EKG REPORT ---
SEVERITY:- ABNORMAL ECG - SINUS RHYTHM RBBB AND LAFB PROBABLE LEFT VENTRICULAR HYPERTROPHY : Confirmed by: Fabian Mcmillan 01-Jun-2019 22:11:59
== END 2019-06-01 19:36 | disposition home or self-care (01) ==
LOC: ER 16:17
DX: S42.291A Other displaced fracture of upper end of right humerus, initial encounter for closed fracture (principal); S00.81XA Abrasion of other part of head, initial encounter; M25.511 Pain in right shoulder; W01.0XXA Fall on same level from slipping, tripping and stumbling without subsequent striking against object, initial encounter; Y93.89 Activity, other specified; I10 Essential (primary) hypertension; J45.909 Unspecified asthma, uncomplicated; Z23 Encounter for immunization
CPT/HCPCS: 93005; 99284; 90471; 71046; 73070; 73030; 70450; 72125; 90715; 93010; A9270

== ENCOUNTER 2020-04-12 15:24 | Inpatient (IN) | payer MEDICARE, OTHER ==
--- NOTE | 2020-04-12 16:04 | ER Document Report ---
ED Medical Screen (RME) - General TRAVEL OUTSIDE OF THE [place] IN LAST 30 DAYS: No <CALIXTO WHITTAKER - Last Filed: 04/12/20 15:59> <CARITO LAKE JR - Last Filed: 04/12/20 18:17> - General Chief Complaint: Shortness Of Breath Stated Complaint: SHORT OF BREATH,COUGH,FEVER Time Seen by Provider: 04/12/20 15:59 Primary Care Provider: CASSIE ARGUETA MD [Primary Care Provider] - Follow up as needed - HPI Notes: 04/12/20 16:04 79-year-old male with a history of hypothyroidism and COPD presents emergency room for complaints of shortness of breath, fever chest congestion, productive cough with green-yellow sputum and diarrhea for the last 14 days. He was seen by his PCP for this issue, was told that he likely had influenza, was not treated with any medications. States that his symptoms are getting progressively worse. Patient is denying any chest pain. Denies any nausea vomiting. Denies any new medications foods or travel. Patient has never had a positive Covid test. I have greeted and performed a rapid initial assessment of this patient. A comprehensive ED assessment and evaluation of the patient, analysis of test r esults and completion of the medical decision making process will be conducted by additional ED providers. PHYSICAL EXAMINATION: GENERAL: Chronically ill malnourished and in no acute distress. CV: s1, s2 regular LUNGS: Diminished breath sounds in upper lobes Musculoskeletal: Normal range of motion NEUROLOGICAL: Normal speech, normal gait. SKIN: Warm, Dry, normal turgor, no rashes or lesions noted. Recheck pulse ox in triage, pulse ox 96% on room air (CALIXTO WHITTAKER) - Related Data Allergies/Adverse Reactions: No Known Allergies Allergy (Verified 05/31/17 11:13) Past Medical History - Past Medical History Cardiac Medical History: Reports: Hx Heart Attack - showed on ekg 2006, Hx Hypertension Denies: Hx Coronary Artery Disease Pulmonary Medical History: Reports: Hx Asthma Denies: Hx Bronchitis, Hx COPD, Hx Pneumonia Neurological Medical History: Denies: Hx Cerebrovascular Accident, Hx Seizures Renal/ Medical History: Denies: Hx Peritoneal Dialysis GI Medical History: Denies: Hx Hepatitis, Hx Hiatal Hernia, Hx Ulcer Musculoskeltal Medical History: Reports Hx Arthritis Infectious Medical History: Denies: Hx Hepatitis Past Surgical History: Reports: Hx Nose Surgery. Denies: Hx Open Heart Surgery, Hx Pacemaker - Immunizations Hx Diphtheria, Pertussis, Tetanus Vaccination: No <CALIXTO WHITTAKER - Last Filed: 04/12/20 15:59> Physical Exam - Vital signs Vitals: Temp Pulse Resp BP Pulse Ox 97.9 F 103 H 18 122/69 89 L 04/12/20 15:37 04/12/20 15:37 04/12/20 15:37 04/12/20 15:37 04/12/20 15:37 Course - Laboratory Result Diagrams: 04/12/20 17:50 <CARITO LAKE JR - Last Filed: 04/12/20 18:17> - Vital Signs Vital signs: Temp Pulse Resp BP Pulse Ox 97.9 F 102 H 18 122/69 96 04/12/20 15:37 04/12/20 16:03 04/12/20 15:37 04/12/20 15:37 04/12/20 16:03 Doctor's Discharge <CALIXTO WHITTAKER - Last Filed: 04/12/20 15:59> <CARITO LAKE JR - Last Filed: 04/12/20 18:17> - Discharge Referrals: CASSIE ARGUETA MD [Primary Care Provider] - Follow up as needed
--- NOTE | 2020-04-12 17:19 | RADIOLOGY REPORT (SQ) ---
EXAM DESCRIPTION: CHEST SINGLE VIEW IMAGES COMPLETED DATE/TIME: 04/12/2020 4:25 pm REASON FOR STUDY: sob x 14 days COMPARISON: 06/01/2019 EXAM PARAMETERS: NUMBER OF VIEWS: One view. TECHNIQUE: Single frontal radiographic view of the chest acquired. RADIATION DOSE: NA LIMITATIONS: None. FINDINGS: LUNGS AND PLEURA: Increased interstitial markings at the lung bases. No focal consolidati on. No pleural effusion. No pneumothorax. MEDIASTINUM AND HILAR STRUCTURES: No masses. Contour normal. HEART AND VASCULAR STRUCTURES: Cardiomegaly with mild central vascular congestion. BONES: No acute findings. HARDWARE: Stable partially imaged medical sociologist overlying the right hemithorax. OTHER: No other significant finding. IMPRESSION: Constellation of findings suggests CHF exacerbation. Infectious etiology is not exclude d. TECHNICAL DOCUMENTATION: JOB ID: [id number] 2010 [employer]- All Rights Reserved Reading location - IP/workstation name: [email or web address]
[2020-04-12 18:17] LABS: ABSOLUTE BASOPHILS # (AUTO) 0.1 10^3/uL (0.0-0.2); ABSOLUTE LYMPHOCYTES (AUTO) 0.8 10^3/uL (0.5-4.7); ABSOLUTE MONOCYTES (AUTO) 1.7 10^3/uL (0.1-1.4); ABSOLUTE NEUT (AUTO) 10.5 10^3/uL (1.7-8.2); BASOPHILS % (AUTO) 0.5 % (0-2); HEMOGLOBIN 15.3 g/dL (13.5-17.0); LYMPHOCYTES % (AUTO) 6.1 % (13-45); MEAN CORPUSCULAR HEMOGLOBIN 29.3 pg (27.0-33.4); MEAN CORPUSCULAR HGB CONC 34.7 g/dL (32.0-36.0); MEAN CORPUSCULAR VOLUME 85 fl (80-97); MONOCYTES % (AUTO) 12.7 % (3-13); PLATELET COUNT 290 10^3/uL (150-450); RED BLOOD COUNT 5.21 10^6/uL (4.35-5.55); RED CELL DISTRIBUTION WIDTH 14.7 % (11.5-14.0); SEGMENTED NEUTROPHILS % (AUTO) 80.7 % (42-78); TOTAL CELLS COUNTED % (AUTO) 100 %; WHITE BLOOD COUNT 13.1 10^3/uL (4.0-10.5)
--- NOTE | 2020-04-12 18:17 | ER Document Report ---
ED Respiratory Problem - General Chief Complaint: Shortness Of Breath Stated Complaint: SHORT OF BREATH,COUGH,FEVER Time Seen by Provider: 04/12/20 15:59 Primary Care Provider: CASSIE ARGUETA MD [Primary Care Provider] - Follow up as needed Notes: 04/12/20 15:54 - Nursing Note by KARLA MARTINEZ Acct Num: [id number] : 1940 Patient Age: 79 Pt arrives to triage via wheelchair. Pt states that for 14 days he has had sob, nasal/chest congestion, fever, and diarrhea. Pt states that he saw his pcp after a few days of s/s and was told that they thought he had the flu, pt states he had no testing. Pt reports his s/s are worsening. Pt is sob and is only able to speak about 7 words at a time. Pt has hx of copd. 04/12/20 18:11 - ED Nursing Note by GORDON SARGENT Acct Num: [id number] : 1940 Patient Age: 79 Pt wheelchair to room 37, C/C cough and SOB X2 weeks with intermittent fever and diarrhea. Denies CP or N/V. Also advises that he often coughs fernandez eating or drinking and has slight difficulty with swallowing. Coughed at end of drinking 30ml H20. Hx: COPD, PR, Arthritis, HLD. Unable to advise about meds. SaO2 88%, placed on 2LPM O2 NC. Monitor applied, EKG, LAbs, Flu, Covid tests obtained. Initialized on 04/12/20 18:11 - END OF NOTE D Medical Screen (Natalee notes) - General Chief Complaint: Shortness Of Breath Stated Complaint: SHORT OF BREATH,COUGH,FEVER Time Seen by Provider: 04/12/20 15:59 Primary Care Provider: CASSIE ARGUETA MD [Primary Care Provider] - Follow up as needed TRAVEL OUTSIDE OF THE [place] IN LAST 30 DAYS: No - HPI Notes: 04/12/20 16:04 79-year-old male with a history of hypothyroidism and COPD presents emergency room for complaints of shortness of breath, fever chest congestion, productive cough with green-yellow sputum and diarrhea for the last 14 days. He was seen by his PCP for this issue, was told that he likely had influenza, was not treated with any medications. States that his symptoms are getting progressively worse. Patient is denying any chest pain. Denies any nausea vom iting. Denies any new medications foods or travel. Patient has never had a positive Covid test. MY NOTES 79-year-old male who advises he has had 2-week history of URI symptoms along with his . She is also sick but patient advises he had 102 fever prior to arrival. He also says he has had a 20 pound weight loss over the 2 weeks because he has had no appetite and complaining of dyspnea shortness of breath chest congestion productive cough. Patient reports he is got progressive ly worse. He arrives with a 89 sat on room air with tachycardia around 103. He was afebrile upon arrival. Patient denies any prior history of CHF. Chest x- ray revealed CHF as interpreted by radiologist. He had a 13,000 white count. His BNP was elevated to 578. My interpretation of the x-ray was interstitial type pattern. TRAVEL OUTSIDE OF THE [place] IN LAST 30 DAYS: No - Related Data Allergies/Adverse Reactions: No Known Allergies Allergy (Verified 05/31/17 11:13) Past Medical History - Social History Smoking Status: Never Smoker Frequency of alcohol use: None Family History: Reviewed & Not Pertinent - Past Medical History Cardiac Medical History: Reports: Hx Heart Attack - showed on ekg 2006, Hx Hypertension Denies: Hx Coronary Artery Disease Pulmonary Medical History: Reports: Hx Asthma Denies: Hx Bronchitis, Hx COPD, Hx Pneumonia Neurological Medical History: Denies: Hx Cerebrovascular Accident, Hx Seizures Renal/ Medical History: Denies: Hx Peritoneal Dialysis GI Medical History: Denies: Hx Hepatitis, Hx Hiatal Hernia, Hx Ulcer Musculoskeletal Medical History: Reports Hx Arthritis Infectious Medical History: Denies: Hx Hepatitis Past Surgical History: Reports: Hx Nose Surgery. Denies: Hx Open Heart Surgery, Hx Pacemaker - Immunizations Hx Diphtheria, Pertussis, Tetanus Vaccination: No Hx Pneumococcal Vaccination: 05/27/12 Physical Exam - Vital signs Vitals: Temp Pulse Resp BP Pulse Ox 97.9 F 103 H 18 122/69 89 L 04/12/20 15:37 04/12/20 15:37 04/12/20 15:37 04/12/20 15:37 04/12/20 15:37 Interpretation: Tachycardic, Hypoxic - General General appearance: Appears well, Alert - HEENT Head: Normocephalic, Atraumatic Eyes: Normal Pupils: PERRL - Respiratory Respiratory status: No respiratory distress Chest status: Nontender Breath sounds: Productive cough, Rales Chest palpation: Normal - Cardiovascular Rhythm: Tachycardia Heart sounds: Normal auscultation Murmur: No - Abdominal Inspection: Normal Distension: No distension Bowel sounds: Normal Tenderness: Nontender Organomegaly: No organomegaly - Rectal Prostate: Other - deferred - Genitourinary Scrotum: Other - deferred - Back Back: Normal, Nontender - Extremities General upper extremity: Normal inspection, Nontender, Normal color, Normal ROM, Normal temperature General lower extremity: Normal inspection, Nontender, Normal color, Normal ROM, Normal temperature, Normal weight bearing. No: Melba's sign - Neurological Neuro grossly intact: Yes Cognition: Normal Orientation: AAOx4 Alton Coma Scale Eye Opening: Spontaneous Alton Coma Scale Verbal: Oriented Giovanna Coma Scale Motor: Obeys Commands Alton Coma Scale Total: 15 Speech: Normal Motor strength normal: LUE, RUE, LLE, RLE Sensory: Normal - Psychological Associated symptoms: Normal affect, Normal mood - Skin Skin Temperature: Warm Skin Moisture: Dry Skin Color: Normal Course - Vital Signs Vital signs: Temp Pulse Resp BP Pulse Ox 97.9 F 102 H 18 132/74 H 96 04/12/20 15:37 04/12/20 16:03 04/12/20 15:37 04/12/20 19:25 04/12/20 16:03 - Laboratory Result Diagrams: 04/12/20 17:50 04/12/20 17:40 Laboratory results interpreted by me: 04/12/20 04/12/20 04/12/20 17:40 17:40 17:50 WBC 13.1 H RDW 14.7 H Lymph % (Auto) 6.1 L Absolute Neuts (auto) 10.5 H Absolute Monos (auto) 1.7 H Seg Neutrophils % 80.7 H Sodium 136.0 L Chloride 95 L BUN 22 H AST 349 H ALT 237 H Alkaline Phosphatase 129 H NT-Pro-B Natriuret Pep 578 H Urine Protein Urine Blood Urine Urobilinogen 04/12/20 20:10 WBC RDW Lymph % (Auto) Absolute Neuts (auto) Absolute Monos (auto) Seg Neutrophils % Sodium Chloride BUN AST ALT Alkaline Phosphatase NT-Pro-B Natriuret Pep Urine Protein 100 H Urine Blood SMALL H Urine Urobilinogen 2.0 H - Diagnostic Test Radiology reviewed: Reports reviewed - EKG Interpretation by Me EKG shows normal: Sinus rhythm Rate: Tachycardia - With heart rate [address] elevation no ST depression and this was read by me and I agree with the EKG machine. Critical Care Note - Critical Care Note Comments: I discussed this case with Dr. Josué Wolf at 2130 who advised he will see the patient presently. Discharge - Discharge Clinical Impression: COVID-19 virus test result unknown CHF (congestive heart failure) Qualifiers: Heart failure type: unspecified Heart failure chronicity: unspecified Qualified Code(s): I50.9 - Heart failure, unspecified Condition: Stable Disposition: ADMITTED INPATIENT [facility] Unit Admitted: Medical Floor Referrals: CASSIE ARGUETA MD [Primary Care Provider] - Follow up as needed
[2020-04-12] MEDS ORDERED: BUMETANIDE INJ/PF 1 MG/4 ML SDV IV ONE (18:19)
[2020-04-12] MEDS ORDERED: FAMOTIDINE INJ/PF 20 MG/2 ML SDV IV ONE (18:19)
[2020-04-12] MEDS ORDERED: DEXAMETHASONE SOD PHOS INJ 10 MG/1 ML VIAL IV ONE (18:19)
[2020-04-12] MEDS ORDERED: AZITHROMYCIN INJ 500 MG VIAL IV ONE (18:20)
[2020-04-12 18:43] LABS: A TYPE INFLUENZA AG NEGATIVE (NEGATIVE); B INFLUENZA AG NEGATIVE (NEGATIVE)
[2020-04-12] MEDS ORDERED: DEXAMETHASONE SOD PHOSPHATE INJ 4 MG/1 ML VIAL IV ONE (18:45)
[2020-04-12 20:26] LABS: ALBUMIN 3.6 g/dL (3.5-5.0); ALKALINE PHOSPHATASE 129 U/L (38-126); ANION GAP 12 (5-19); ASPARTATE AMINO TRANSFERASE 349 U/L (17-59); BILIRUBIN,DIRECT 0.4 mg/dL (0.0-0.4); BILIRUBIN,TOTAL 1.3 mg/dL (0.2-1.3); BLOOD UREA NITROGEN 22 mg/dL (7-20); CALCIUM 8.5 mg/dL (8.4-10.2); CARBON DIOXIDE 29 mmol/L (22-30); CHLORIDE 95 mmol/L (98-107); GLUCOSE 93 mg/dL (75-110); POTASSIUM 4.1 mmol/L (3.6-5.0); TOTAL PROTEIN 6.7 g/dL (6.3-8.2)
[2020-04-12 21:08] LABS: APPEARANCE,URINE SLIGHTLY-CLOUDY; BILIRUBIN,URINE NEGATIVE (NEGATIVE); COLOR,URINE AMBER; GLUCOSE, URINE NEGATIVE (NEGATIVE); KETONES,URINE NEGATIVE (NEGATIVE); LEUKOCYTE ESTERASE,URINE NEGATIVE (NEGATIVE); NITRITE,URINE NEGATIVE (NEGATIVE); PROTEIN,URINE 100 mg/dL (NEGATIVE); URINE SPECIFIC GRAVITY 1.018
[2020-04-12] MEDS ORDERED: ACETAMINOPHEN 325 MG TABLET PO PRN (22:39)
[2020-04-12] MEDS ORDERED: ONDANSETRON HCL INJ/PF 4 MG/2 ML SDV IV PRN (22:39)
--- NOTE | 2020-04-12 22:56 | PDOC H&P ---
History of Present Illness Admission Date/PCP: 04/12/20 22:37 CASSIE ARGUETA MD Patient complains of: Shortness of breath, fever History of Present Illness: MAYA BISWAS is a 79 year old male with a history of hypothyroidism and asthma who presents with 2 weeks duration of shortness of breath which has been progressively getting worse. Initially it was with exertion and he states that now he feels short of breath even at rest. Associated with this he also reports that he had a fever of 103 at home with cough productive of yellowish sputum. Patient also reports that he had generalized body aches. He states that he sleeps on a hospital bed due to her chronic longstanding back pain and recently he had to prop his head up more almost to a sitting position to sleep. He states that has on and off bilateral lower extremity swelling. On arrival at the ED patient was saturating around 88% on room air. He denies any nausea, vomiting, chest pain, palpitation, abdominal pain, diarrhea or any change in his urinary habit. Past Medical History Cardiac Medical History: Reports: Myocardial Infarction - showed on ekg 2006, Hypertension Denies: Coronary Artery Disease Pulmonary Medical History: Reports: Asthma Denies: Bronchitis, Chronic Obstructive Pulmonary Disease (COPD), Pneumonia Neurological Medical History: Denies: Seizures GI Medical History: Denies: Hepatitis, Hiatal Hernia Musculoskeltal Medical History: Reports: Arthritis Hematology: Denies: Anemia, Sickle Cell Disease Past Surgical History Past Surgical History: Denies: Pacemaker Social History Information Source: Patient Lives with: Family Smoking Status: Never Smoker Frequency of Alcohol Use: None Hx Recreational Drug Use: No Drugs: None - Advance Directive Resuscitation Status: Full Code Family History Family History: Reviewed & Not Pertinent Parental Family History Reviewed: Yes Children Family History Reviewed: Yes Sibling(s) Family History Reviewed.: Yes Medication/Allergy Home Medications: Telmisartan [Micardis 20 mg Tablet] 40 mg PO DAILY 01/21/12 Triamterene/Hydrochlorothiazid [Triamterene-Hctz 75-50 Mg Tab] 0.5 tab PO DAILY 01/21/12 Albuterol Sulfate [Proair Hfa Inhalation Aerosol 8.5 gm Mdi] 1 puff IH Q4HP PRN 12/06/15 Fexofenadine HCl [Sydnie] 180 mg PO DAILY 12/06/15 Fluticasone Propion/Salmeterol [Advair HFA 115-21 mcg Inhaler] 2 puff IH BID 12/06/15 Fluticasone Propionate 16 gm NS DAILY PRN 12/06/15 Levothyroxine Sodium [Synthroid] 75 mcg PO DAILY 12/06/15 Armodafinil [Nuvigil] 150 mg PO DAILYP PRN 05/31/17 Omeprazole 20 mg PO DAILYP PRN 05/31/17 Tadalafil [Cialis] 5 mg PO DAILY 05/31/17 Tiotropium [place] [Spiriva Respimat] 1 spray IH DAILY 05/31/17 Ibuprofen [Motrin 800 mg Tablet] 800 mg PO Q8H PRN #15 tab 06/01/19 Allergies/Adverse Reactions: No Known Allergies Allergy (Verified 05/31/17 11:13) Review of Systems Constitutional: PRESENT: fatigue, fever(s), weakness, weight loss. ABSENT: anorexia, chills, headache(s), night sweats Eyes: ABSENT: visual disturbances Ears: ABSENT: hearing changes Nose, Mouth, and Throat: ABSENT: as per HPI, headache(s), mouth pain, sore throat, vertigo, other Cardiovascular: PRESENT: as per HPI Respiratory: PRESENT: as per HPI Gastrointestinal: ABSENT: abdominal pain, constipation, diarrhea, hematemesis, hematochezia, nausea, vomiting Genitourinary: ABSENT: dysuria, hematuria Musculoskeletal: ABSENT: joint swelling Integumentary: ABSENT: rash, wounds Neurological: ABSENT: abnormal gait, abnormal speech, confusion, dizziness, focal weakness, syncope Psychiatric: ABSENT: anxiety, depression, homidical ideation, suicidal ideation Endocrine: ABSENT: cold intolerance, heat intolerance, polydipsia, polyuria Hematologic/Lymphatic: ABSENT: easy bleeding, easy bruising Physical Exam Vital Signs: Temp Pulse Resp BP Pulse Ox 97.9 F 102 H 18 132/74 H 96 04/12/20 15:37 04/12/20 16:03 04/12/20 15:37 04/12/20 19:25 04/12/20 16:03 Intake & Output 04/11/20 04/12/20 04/13/20 06:59 06:59 06:59 Intake Total 250 Balance 250 Weight 100 kg Additional comments: GENERAL APPEARANCE: Alert and oriented x3, in no acute distress, breathing comfortably on 2 L intranasal oxygen HEENT: Normocephalic and atraumatic. No scleral icterus. Moist oral mucosa NECK: Supple. No lymphadenopathy. No JVD CHEST: Symmetric. Nontender to palpation. LUNGS: Clear with good air entry bilaterally. No wheezing or crackles HEART: Regular rate and rhythm with normal S1 and S2. No murmurs, gallops, or ru bs. ABDOMEN: Flat, soft, active bowel sounds, no direct or rebound tenderness. No organomegaly detected. EXTREMITIES: No cyanosis, clubbing, or edema. MUSCULOSKELETAL: No deformity, atrophy or swelling noted PSYCHIATRIC: Recent and remote memory is intact. Appropriate mood and affect. SKIN: Warm, dry, and well perfused. No lesions or rashes are noted. NEUROLOGIC: No focal sensory or motor deficits are noted. Results Laboratory Results: 04/12/20 17:50 04/12/20 17:40 04/12/20 04/12/20 04/12/20 17:40 17:40 17:50 WBC 13.1 H RBC 5.21 Hgb 15.3 Hct 44.0 MCV 85 MCH 29.3 MCHC 34.7 RDW 14.7 H Plt Count 290 Seg Neutrophils % 80.7 H Sodium 136.0 L Potassium 4.1 Chloride 95 L Carbon Dioxide 29 Anion Gap 12 BUN 22 H Creatinine 0.92 Est GFR ( Amer) > 60 Glucose 93 Calcium 8.5 Total Bilirubin 1.3 AST 349 H Alkaline Phosphatase 129 H Total Protein 6.7 Albumin 3.6 TSH 1.11 Urine Color Urine Appearance Urine pH Ur Specific Adams Urine Protein Urine Glucose (UA) Urine Ketones Urine Blood Urine Nitrite Ur Leukocyte Esterase Urine WBC (Auto) Urine RBC (Auto) 04/12/20 20:10 WBC RBC Hgb Hct MCV MCH MCHC RDW Plt Count Seg Neutrophils % Sodium Potassium Chloride Carbon Dioxide Anion Gap BUN Creatinine Est GFR ( Amer) Glucose Calcium Total Bilirubin AST Alkaline Phosphatase Total Protein Albumin TSH Urine Color EVANGELIST Urine Appearance SLIGHTLY-CLOUDY Urine pH 6.0 Ur Specific Adams 1.018 Urine Protein 100 H Urine Glucose (UA) NEGATIVE Urine Ketones NEGATIVE Urine Blood SMALL H Urine Nitrite NEGATIVE Ur Leukocyte Esterase NEGATIVE Urine WBC (Auto) 4 Urine RBC (Auto) 4 04/12/20 17:40 NT-Pro-B Natriuret Pep 578 H Impressions: Chest X-Ray 04/12/20 16:03 IMPRESSION: Constellation of findings suggests CHF exacerbation. Infectious etiology is not excluded. Assessment and Plan - Diagnosis (1) Acute respiratory failure with hypoxia Is this a current diagnosis for this admission?: Yes Plan: On presentation oxygen saturation was 88% on room air Likely due to viral pneumonia vs onset heart failure Currently saturating well on 2 L intranasal oxygen Chest x-ray shows cardiomegaly with pulmonary vascular congestion vs questionable bilateral infiltrates due to viral pneumonia COVID-19 test result pending Started on dexamethasone, zinc, vitamin C and vitamin D Continue intranasal oxygen and titrate for Pox >94% (2) New onset of congestive heart failure Is this a current diagnosis for this admission?: Yes Plan: Presents with shortness of breath, orthopnea BNP elevated at 580 Chest x-ray shows cardiomegaly and pulmonary vascular congestion Started on Lasix, strict I&O's, daily weight and fluid restriction Will get echo (3) Suspected COVID-19 virus infection Is this a current diagnosis for this admission?: Yes Plan: Presents with symptoms concerning for COVID-19 Chest x-ray shows signs of possible bilateral filtrates suggestive of viral pneumonia Continue dexamethasone 6 mg IV daily Currently on vitamin C, zinc, vitamin D Tylenol as needed for fever Follow-up with Covid result (4) Elevated liver enzymes Is this a current diagnosis for this admission?: Yes Plan: AST/ALT/alk phos: 349/237/129 Will get hepatitis panel Consider RUQ abdominal ultrasound Monitor liver enzymes (5) Hypothyroidism Is this a current diagnosis for this admission?: Yes Plan: Currently patient denies hypo or hyperthyroid symptoms He states that he is not on any medication right now For pain TSH in the morning (6) History of asthma Is this a current diagnosis for this admission?: Yes Plan: Currently stable and not in acute exacerbation Continue to monitor Albuterol inhaler as needed - Time Time Spent with patient: 35 or more minutes Total Critical Time (Minutes): 40 Medications reviewed and adjusted accordingly: Yes Anticipated Discharge Disposition: Home, Self Care Anticipated Discharge Timeframe: within 48 hours - Inpatient Certification Based on my medical assessment, after consideration of the patient's comorbidi ties, presenting symptoms, or acuity I expect that the services needed warrant INPATIENT care.: Yes I certify that my determination is in accordance with my understanding of Alfreda cho's requirements for reasonable and necessary INPATIENT services [42 CFR 412.3e].: Yes Medical Necessity: Need Close Monitoring Due to Risk of Patient Decompensation, Need For Continuous Telemetry Monitoring
--- NOTE | 2020-04-12 23:51 | EKG REPORT ---
SEVERITY:- ABNORMAL ECG - SINUS RHYTHM RIGHT BUNDLE BRANCH BLOCK AND LAHB PROBABLE ANTEROSEPTAL INFARCT, AGE INDETERM : Confirmed by: Lucretia Tran MD 12-Apr-2020 23:50:05
[2020-04-13 00:46] LABS: C-REACTIVE PROTEIN 183.1 mg/L (<10.0)
--- NOTE | 2020-04-13 09:34 | PDOC PROGRESS REPORT ---
Subjective Date:: 04/13/20 Subjective:: 79 year old male with a history of hypothyroidism and asthma who presents with 2 weeks duration of shortness of breath which has been progressively getting worse. Initially it was with exertion and he states that now he feels short of breath even at rest. Associated with this he also reports that he had a fever of 103 at home with cough productive of yellowish sputum. Patient also reports that he had generalized body aches. He states that he sleeps on a hospital bed due to her chronic longstanding back pain and recently he had to prop his head up more almost to a sitting position to sleep. He states that has on and off bilateral lower extremity swelling. On arrival at the ED patient was saturating around 88% on room air. He denies any nausea, vomiting, chest pain, palpitation, abdominal pain, diarrhea or any change in his urinary habit. 04/13/[id number]-gqam-old male with history of asthma, hypothyroidism admitted with complaints of 2 weeks of shortness of breath. X-ray suggestive of bilateral pneumonia most likely viral. D-dimer is elevated at 1.59. Plan to do the CT of the chest rule out pulmonary embolism. COVID-19 test is pending. Socks is a 90% on 3 L at this time. Comfortably sitting on the edge of the bed communicating well. Denies any chest pains. pt Is not sure about the exposure to Covid. Reason For Visit: ACUTE HYPOXIC RESPIRATORY FAILURE SUSPECTED Physical Exam Vital Signs: Temp Pulse Resp BP Pulse Ox 97.9 F 85 20 119/86 H 90 L 04/12/20 15:37 04/13/20 03:00 04/13/20 03:00 04/13/20 03:00 04/13/20 03:10 Intake & Output 04/12/20 04/13/20 04/14/20 06:59 06:59 06:59 Intake Total 250 Balance 250 Weight 100 kg General appearance: PRESENT: no acute distress, cooperative, well-developed Head exam: PRESENT: atraumatic Eye exam: PRESENT: PERRLA Mouth exam: PRESENT: moist, tongue midline Teeth exam: PRESENT: poor dentation Neck exam: ABSENT: carotid bruit, JVD, lymphadenopathy, thyromegaly Respiratory exam: PRESENT: decreased breath sounds Cardiovascular exam: PRESENT: RRR. ABSENT: diastolic murmur, rubs, systolic murmur GI/Abdominal exam: PRESENT: normal bowel sounds, soft. ABSENT: distended, guarding, mass, organolmegaly, rebound, tenderness Rectal exam: PRESENT: deferred Extremities exam: PRESENT: full ROM. ABSENT: calf tenderness, clubbing, pedal edema Neurological exam: PRESENT: alert, awake, oriented to person, oriented to place, oriented to time, oriented to situation, CN II-XII grossly intact. ABSENT: motor sensory deficit Psychiatric exam: PRESENT: appropriate affect, normal mood. ABSENT: homicidal ideation, suicidal ideation Results Laboratory Results: 04/12/20 17:50 04/12/20 17:40 04/12/20 04/12/20 04/12/20 17:40 17:40 17:50 WBC 13.1 H RBC 5.21 Hgb 15.3 Hct 44.0 MCV 85 MCH 29.3 MCHC 34.7 RDW 14.7 H Plt Count 290 Seg Neutrophils % 80.7 H Sodium 136.0 L Potassium 4.1 Chloride 95 L Carbon Dioxide 29 Anion Gap 12 BUN 22 H Creatinine 0.92 Est GFR ( Amer) > 60 Glucose 93 Calcium 8.5 Ferritin Total Bilirubin 1.3 AST 349 H Alkaline Phosphatase 129 H C-Reactive Protein Total Protein 6.7 Albumin 3.6 TSH 1.11 Urine Color Urine Appearance Urine pH Ur Specific Julian Urine Protein Urine Glucose (UA) Urine Ketones Urine Blood Urine Nitrite Ur Leukocyte Esterase Urine WBC (Auto) Urine RBC (Auto) 04/12/20 04/12/20 20:10 23:45 WBC RBC Hgb Hct MCV MCH MCHC RDW Plt Count Seg Neutrophils % Sodium Potassium Chloride Carbon Dioxide Anion Gap BUN Creatinine Est GFR ( Amer) Glucose Calcium Ferritin 443.00 Total Bilirubin AST Alkaline Phosphatase C-Reactive Protein 183.1 H Total Protein Albumin TSH Urine Color EVANGELIST Urine Appearance SLIGHTLY-CLOUDY Urine pH 6.0 Ur Specific Julian 1.018 Urine Protein 100 H Urine Glucose (UA) NEGATIVE Urine Ketones NEGATIVE Urine Blood SMALL H Urine Nitrite NEGATIVE Ur Leukocyte Esterase NEGATIVE Urine WBC (Auto) 4 Urine RBC (Auto) 4 04/12/20 04/12/20 17:40 23:45 Creatine Kinase 78 NT-Pro-B Natriuret Pep 578 H Impressions: Chest X-Ray 04/12/20 16:03 IMPRESSION: Constellation of findings suggests CHF exacerbation. Infectious etiology is not excluded. Assessment and Plan - Diagnosis (1) Acute respiratory failure with hypoxia Is this a current diagnosis for this admission?: Yes Plan: On presentation oxygen saturation was 88% on room air Likely due to viral pneumonia vs onset heart failure Currently saturating well on 2 L intranasal oxygen Chest x-ray shows cardiomegaly with pulmonary vascular congestion vs questionable bilateral infiltrates due to viral pneumonia COVID-19 test result pending Started on dexamethasone, zinc, vitamin C and vitamin D Continue intranasal oxygen and titrate for Pox >94% 04/13/2020-pulse ox is 97% on 3 L. Chest x-ray suggestive of viral pneumonia versus congestive heart failure. Presently on 3 L of oxygen. D-dimer is elevated plan to treat with a CT of the chest is requested torule out pulmonary embolism. Covid test is pending. Presently in dexamethasone, zinc, vitamin C, and vitamin D. Patient is comfortably sitting in the edge of the bed communicating well. (2) CHF (congestive heart failure) Qualifiers: Heart failure type: unspecified Heart failure chronicity: unspecified Qualified Code(s): I50.9 - Heart failure, unspecified Is this a current diagnosis for this admission?: No Plan: Presents with shortness of breath, orthopnea BNP elevated at 580 Chest x-ray shows cardiomegaly and pulmonary vascular congestion Started on Lasix, strict I&O's, daily weight and fluid restriction Will get echo 04/13/2020-patient came in with shortness of breath and orthopnea. BNP is elevated. Chest x-ray indicated with cardiomegaly and pulmonary vascular congestion. Patient was given Lasix 80 mg 1 dose in the ER. Echocardiogram is pending at this time. Patient denies any history of congestive heart failure. (3) Suspected COVID-19 virus infection Is this a current diagnosis for this admission?: Yes Plan: Presents with symptoms concerning for COVID-19 Chest x-ray shows signs of possible bilateral filtrates suggestive of viral pneumonia Continue dexamethasone 6 mg IV daily Currently on vitamin C, zinc, vitamin D Tylenol as needed for fever Follow-up with Covid result 06/13/2019-pulse ox is 90% on [address] of the chest is pending. D-dimer is elevated at 1.59. To start him on treatment dose of Lovenox. Continue dexamethasone, vitamin C, vitamin D and zinc. (4) Elevated liver enzymes Is this a current diagnosis for this admission?: Yes Plan: AST/ALT/alk phos: 349/237/129 Will get hepatitis panel Consider RUQ abdominal ultrasound Monitor liver enzymes 04/14/20-LFTs are slightly elevated. Plan is to recheck the labs tomorrow. (5) History of asthma Is this a current diagnosis for this admission?: No Plan: Currently stable and not in acute exacerbation Continue to monitor Albuterol inhaler as needed (6) Hypothyroidism Is this a current diagnosis for this admission?: No Plan: Currently patient denies hypo or hyperthyroid symptoms He states that he is not on any medication right now For pain TSH in the morning - Time Anticipated Discharge Disposition: Home, Self Care Anticipated Discharge Timeframe: within 72 hours
[2020-04-13] MEDS ORDERED: ENOXAPARIN SODIUM INJ 40 MG/0.4 ML DISP.SYRIN SUBCUT SCH (10:00)
[2020-04-13] MEDS ORDERED: FUROSEMIDE INJ/PF 20 MG/2 ML SDV IV SCH (10:00)
[2020-04-13 11:17] LABS: C-REACTIVE PROTEIN 176.1 mg/L (<10.0)
[2020-04-13] MEDS: ENOXAPARIN SODIUM INJ 100 MG/1 ML DISP.SYRIN SUBCUT SCH ×2 (13:23→21:38)
[2020-04-13] MEDS: CHOLECALCIFEROL (D3) 1,000 UNIT (25 MCG) TABLET PO SCH (13:25)
[2020-04-13] MEDS: AZITHROMYCIN 250 MG TABLET PO SCH (13:25)
[2020-04-13] MEDS: FAMOTIDINE 20 MG TABLET PO SCH ×3 (13:26→21:38)
[2020-04-13] MEDS: ZINC SULFATE 220 MG CAPSULE PO SCH (13:26)
[2020-04-13] MEDS: ASCORBIC ACID 500 MG TABLET PO SCH ×2 (13:35→19:18)
--- NOTE | 2020-04-13 14:19 | RADIOLOGY REPORT (SQ) ---
EXAM DESCRIPTION: CTA CHEST IMAGES COMPLETED DATE/TIME: 04/13/2020 12:44 pm REASON FOR STUDY: high d-dimer COMPARISON: 09/20/2015 TECHNIQUE: CT scan of the chest performed using helical scanning technique with dynamic intravenous contrast injection. Images reviewed with lung, soft tissue and bone windows. Reconstructed coronal and sagittal MPR images reviewed. Additional 3 dimensional post-processing performed to develop Maximal Intensity Projection images (MT P). All images stored on PACS. All CT scanners at this facility use dose modulation, iterative reconstruction, and/or weight based d osing when appropriate to reduce radiation dose to as low as reasonably achievable (ALARA). [facility]: Dose Right [facility]: CareDose [facility]: Dose Right [facility]: Teradose 4D [facility]: Lumidigm CONTRAST TYPE AND DOSE: contrast/concentration: Isovue 350.00 mmol/ml; Total Contrast Delivered: 68. 9 ml; Total Saline Delivered: 47.1 ml Contrast bolus adequate for pulmonary arteries and aorta. RENAL FUNCTION: BUN 22, creatinine 0.92 RADIATION DOSE: CT Rad equipment meets quality standard of care and radiation dose reduction techniq ues were employed. CTDIvol: 26.4 - 34.4 mGy. DLP: 1262 mGy-cm. . LIMITATIONS: None. FINDINGS: LUNGS AND PLEURA: There are bilateral ground-glass opacities in the upper and lower lobes. Findings could represent pulmonary edema or atypical pneumonia. Viral pneumonitis cannot be exclud ed. There is a 9.2 mm subpleural nodule on series 4 image 82. Do 2 surrounding airspace disease and difference in inspiration is difficult to determine whether this represents the 4 mm nodule previous ly described but it most likely does. AORTA AND GREAT VESSELS: Dilatation of the ascending aorta. Largest diameter is 5.0 cm. HEART: No pericardial effusion. No significant coronary artery calcifications. PULMONARY ARTERIES: No emboli visualized in the main pulmonary arteries or the segmental branches. HILAR AND MEDIASTINAL STRUCTURES: Prominent hilar nodes most likely reactive. HARDWARE: None in the chest. UPPER ABDOMEN: No significant findings. Limited exam. THYROID AND OTHER SOFT TISSUES: No masses. No adenopathy. BONES: No acute or significant finding. 3D MIPS: Confirm above findings. OTHER: No other significant finding. IMPRESSION: Bilateral ground-glass opacities which could represent pulmonary edema or atypical pneum onia. No pulmonary emboli. Stable dilatation of the ascending aorta with largest diameter measured 5 0.0 cm. 9.2 mm subpleural nodule demonstrated on series 4, image 42. As discussed above this has increased i n size from prior exam. COMMENT: FLEISCHNER CRITERIA FOR FOLLOW-UP OF PULMONARY NODULES Incidentally detected new nodules in persons 35 or older. HIGH RISK: History of smoking or other known risk factors. >8 mm single solid nodule: LOW and HIGH RISK: consider CT, PET/CT or biopsy at 3 mo. Quality ID # [id number]: Final reports with documentation of one or more dose reduction techniques (e.g., Au tomated exposure control, adjustment of the mA and/or kV according to patient size, use of iterative reconstruction technique) TECHNICAL DOCUMENTATION: JOB ID: [id number] 2010 [employer]- All Rights Reserved Reading location - IP/workstation name: [email or web address]
[2020-04-13] MEDS: DEXAMETHASONE SOD PHOS INJ 10 MG/1 ML VIAL IV SCH (16:18)
[2020-04-14] MEDS ORDERED: INFLUENZA QUAD (6MOS+) 2020-21 VAC 0.5 ML SYR IM ONE (08:00)
[2020-04-14 08:02] LABS: HEMATOCRIT 41.4 % (37.9-51.0); HEMOGLOBIN 14.2 g/dL (13.5-17.0); MEAN CORPUSCULAR HGB CONC 34.4 g/dL (32.0-36.0); MEAN CORPUSCULAR VOLUME 84 fl (80-97); PLATELET COUNT 320 10^3/uL (150-450); RED CELL DISTRIBUTION WIDTH 14.5 % (11.5-14.0); WHITE BLOOD COUNT 21.9 10^3/uL (4.0-10.5)
[2020-04-14 08:31] LABS: ALBUMIN 2.9 g/dL (3.5-5.0); ALKALINE PHOSPHATASE 103 U/L (38-126); ANION GAP 8 (5-19); ASPARTATE AMINO TRANSFERASE 247 U/L (17-59); BILIRUBIN,DIRECT 0.4 mg/dL (0.0-0.4); BILIRUBIN,TOTAL 0.8 mg/dL (0.2-1.3); BLOOD UREA NITROGEN 39 mg/dL (7-20); CALCIUM 8.5 mg/dL (8.4-10.2); CARBON DIOXIDE 26 mmol/L (22-30); CHLORIDE 101 mmol/L (98-107); GLUCOSE 136 mg/dL (75-110); TOTAL PROTEIN 5.8 g/dL (6.3-8.2)
[2020-04-14 08:45] LABS: ABSOLUTE LYMPHOCYTES# (MANUAL) 0.9 10^3/uL (0.5-4.7); ABSOLUTE MONOCYTES # (MANUAL) 0.7 10^3/uL (0.1-1.4); BAND NEUTROPHILS % (MANUAL) 6 % (3-5); BASOPHILS % (MANUAL) 0 % (0-2); EOSINOPHILS % (MANUAL) 0 % (0-6); LYMPHOCYTES % (MANUAL) 4 % (13-45); MONOCYTES % (MANUAL) 3 % (3-13); SEGMENTED NEUTROPHILS % (MAN) 87 % (42-78); TOTAL CELLS COUNTED 100
[2020-04-14 08:54] LABS: PLATELET COMMENT ADEQUATE; RBC MORPHOLOGY COMMENT NORMO-CYTIC/CHROMIC
--- NOTE | 2020-04-14 09:59 | PDOC PROGRESS REPORT ---
Subjective Date:: 04/14/20 Subjective:: 79 year old male with a history of hypothyroidism and asthma who presents with 2 weeks duration of shortness of breath which has been progressively getting worse. Initially it was with exertion and he states that now he feels short of breath even at rest. Associated with this he also reports that he had a fever of 103 at home with cough productive of yellowish sputum. Patient also reports that he had generalized body aches. He states that he sleeps on a hospital bed due to her chronic longstanding back pain and recently he had to prop his head up more almost to a sitting position to sleep. He states that has on and off bilateral lower extremity swelling. On arrival at the ED patient was saturating around 88% on room air. He denies any nausea, vomiting, chest pain, palpitation, abdominal pain, diarrhea or any change in his urinary habit. 04/13/[id number]-sjgk-old male with history of asthma, hypothyroidism admitted with complaints of 2 weeks of shortness of breath. X-ray suggestive of bilateral pneumonia most likely viral. D-dimer is elevated at 1.59. Plan to do the CT of the chest rule out pulmonary embolism. COVID-19 test is pending. Socks is a 90% on 3 L at this time. Comfortably sitting on the edge of the bed communicating well. Denies any chest pains. pt Is not sure about the exposure to Covid. 04/14/2004-92-tjbo-old male with history of asthma, hypothyroidism admitted with history of 2 weeks of shortness of breath. D-dimer was elevated at the time of admission. CTA is negative for pulmonary embolism. COVID-19 is pending at this time. Pulse ox is 94% on 6 L of oxygen. Gently on zinc, dexamethasone, Zithromax. Patient received convulsant plasma. Reason For Visit: ACUTE HYPOXIC RESPIRATORY FAILURE SUSPECTED Physical Exam Vital Signs: Temp Pulse Resp BP Pulse Ox 98.1 F 89 19 120/86 H 94 04/14/20 08:00 04/14/20 08:00 04/14/20 08:00 04/14/20 08:00 04/14/20 08:00 Intake & Output 04/13/20 04/14/20 04/15/20 06:59 06:59 06:59 Intake Total 250 900 Output Total 400 Balance 250 500 Weight 100 kg 100 kg General appearance: PRESENT: no acute distress, cooperative, well-developed Head exam: PRESENT: atraumatic Eye exam: PRESENT: PERRLA Ear exam: PRESENT: normal external ear exam Mouth exam: PRESENT: neck supple Neck exam: ABSENT: carotid bruit, JVD, lymphadenopathy, thyromegaly Respiratory exam: PRESENT: decreased breath sounds Cardiovascular exam: PRESENT: RRR. ABSENT: diastolic murmur, rubs, systolic murmur GI/Abdominal exam: PRESENT: normal bowel sounds, soft. ABSENT: distended, guarding, mass, organolmegaly, rebound, tenderness Rectal exam: PRESENT: deferred Extremities exam: PRESENT: full ROM. ABSENT: calf tenderness, clubbing, pedal edema Neurological exam: PRESENT: alert, awake, oriented to person, oriented to place, oriented to time, oriented to situation, CN II-XII grossly intact. ABSENT: motor sensory deficit Psychiatric exam: PRESENT: appropriate affect, normal mood. ABSENT: homicidal ideation, suicidal ideation Results Laboratory Results: 04/14/20 04:50 04/14/20 04:50 04/13/20 04/13/20 04/14/20 10:28 19:18 04:50 WBC RBC Hgb Hct MCV MCH MCHC RDW Plt Count Seg Neutrophils % Sodium Potassium Chloride Carbon Dioxide Anion Gap BUN Creatinine Est GFR ( Amer) Glucose Calcium Magnesium Ferritin 523.00 H Total Bilirubin AST Alkaline Phosphatase C-Reactive Protein 176.1 H Total Protein Albumin TSH 0.38 L Blood Type O POSITIVE 04/14/20 04/14/20 04:50 04:50 WBC 21.9 H RBC 4.90 Hgb 14.2 Hct 41.4 MCV 84 MCH 29.0 MCHC 34.4 RDW 14.5 H Plt Count 320 Seg Neutrophils % Not Reportable Sodium 135.4 L Potassium 4.0 Chloride 101 Carbon Dioxide 26 Anion Gap 8 BUN 39 H Creatinine 0.79 Est GFR ( Amer) > 60 Glucose 136 H Calcium 8.5 Magnesium 2.7 H Ferritin Total Bilirubin 0.8 AST 247 H Alkaline Phosphatase 103 C-Reactive Protein Total Protein 5.8 L Albumin 2.9 L TSH Blood Type 04/12/20 04/12/20 17:40 23:45 Creatine Kinase 78 NT-Pro-B Natriuret Pep 578 H Impressions: Chest X-Ray 04/12/20 16:03 IMPRESSION: Constellation of findings suggests CHF exacerbation. Infectious etiology is not excluded. Chest/Abdomen CTA 04/13/20 00:00 IMPRESSION: Bilateral ground-glass opacities which could represent pulmonary edema or atypical pneumonia. No pulmonary emboli. Stable dilatation of the ascending aorta with largest diameter measured 5 0.0 cm. 9.2 mm subpleural nodule demonstrated on series 4, image 42. As discussed above this has increased in size from prior exam. Assessment and Plan - Diagnosis (1) Acute respiratory failure with hypoxia Is this a current diagnosis for this admission?: Yes Plan: On presentation oxygen saturation was 88% on room air Likely due to viral pneumonia vs onset heart failure Currently saturating well on 2 L intranasal oxygen Chest x-ray shows cardiomegaly with pulmonary vascular congestion vs questionable bilateral infiltrates due to viral pneumonia COVID-19 test result pending Started on dexamethasone, zinc, vitamin C and vitamin D Continue intranasal oxygen and titrate for Pox >94% 04/13/2020-pulse ox is 97% on 3 L. Chest x-ray suggestive of viral pneumonia versus congestive heart failure. Presently on 3 L of oxygen. D-dimer is jacob vated plan to treat with a CT of the chest is requested to rule out pulmonary embolism. Covid test is pending. Presently in dexamethasone, zinc, vitamin C, and vitamin D. Patient is comfortably sitting in the edge of the bed communicating well. 04/14/2020-pulse ox is 96% on [address] scan indicated for bilateral pneumonia most likely viral pneumonia, negative for pulmonary embolism. Patient received convulsant plasma and receiving dexamethasone, zinc, vitamin C, vitamin D, Zithromax. We may be able to get COVID-19 results today. (2) CHF (congestive heart failure) Qualifiers: Heart failure type: unspecified Heart failure chronicity: unspecified Qualified Code(s): I50.9 - Heart failure, unspecified Is this a current diagnosis for this admission?: No Plan: Presents with shortness of breath, orthopnea BNP elevated at 580 Chest x-ray shows cardiomegaly and pulmonary vascular congestion Started on Lasix, strict I&O's, daily weight and fluid restriction Will get echo 04/13/2020-patient came in with shortness of breath and orthopnea. BNP is elevated. Chest x-ray indicated with cardiomegaly and pulmonary vascular congestion. Patient was given Lasix 80 mg 1 dose in the ER. Echocardiogram is pending at this time. Patient denies any history of congestive heart failure. 04/14/20-echocardiogram was done results are pending at this time. (3) Suspected COVID-19 virus infection Is this a current diagnosis for this admission?: Yes Plan: Presents with symptoms concerning for COVID-19 Chest x-ray shows signs of possible bilateral filtrates suggestive of viral pneumonia Continue dexamethasone 6 mg IV daily Currently on vitamin C, zinc, vitamin D Tylenol as needed for fever Follow-up with Covid result 04/13/2020-pulse ox is 90% on [address] of the chest is pending. D-dimer is elevated at 1.59. To start him on treatment dose of Lovenox. Continue dexa methasone, vitamin C, vitamin D and zinc. 04/14/2020-pulse oxes 94% on [address] of the chest is negative for pulmonary embolism. D-dimer is high patient is receiving treatment dose of Lovenox at th is time. (4) Elevated liver enzymes Is this a current diagnosis for this admission?: Yes Plan: AST/ALT/alk phos: 349/237/129 Will get hepatitis panel Consider RUQ abdominal ultrasound Monitor liver enzymes 04/14/20-LFTs are slightly elevated. Plan is to recheck the labs tomorrow. (5) History of asthma Is this a current diagnosis for this admission?: No Plan: Currently stable and not in acute exacerbation Continue to monitor Albuterol inhaler as needed (6) Hypothyroidism Is this a current diagnosis for this admission?: No Plan: Currently patient denies hypo or hyperthyroid symptoms He states that he is not on any medication right now For pain TSH in the morning - Time Anticipated Discharge Disposition: Home, Self Care Anticipated Discharge Timeframe: within 72 hours
[2020-04-14] MEDS: IPRATROPIUM/ALBUTEROL 0.5-2.5 MG/3 ML AMPUL NEB PRN (10:14)
[2020-04-14] MEDS: DEXAMETHASONE SOD PHOS INJ 10 MG/1 ML VIAL IV SCH (10:36)
[2020-04-14] MEDS: CHOLECALCIFEROL (D3) 1,000 UNIT (25 MCG) TABLET PO SCH (10:36)
[2020-04-14] MEDS: ASCORBIC ACID 500 MG TABLET PO SCH ×2 (10:36→17:17)
[2020-04-14] MEDS: ZINC SULFATE 220 MG CAPSULE PO SCH (10:36)
[2020-04-14] MEDS: FAMOTIDINE 20 MG TABLET PO SCH ×2 (10:36→22:51)
[2020-04-14] MEDS: AZITHROMYCIN 250 MG TABLET PO SCH (10:36)
[2020-04-14 10:37] LABS: HEPATITS B SURFACE ANTIGEN Negative (Negative)
[2020-04-14] MEDS: ENOXAPARIN SODIUM INJ 100 MG/1 ML DISP.SYRIN SUBCUT SCH ×2 (10:38→22:51)
[2020-04-14 10:47] LABS: HEPATITIS C VIRUS ANTIBODY <0.1 s/co ratio (0.0-0.9)
[2020-04-14] MEDS ORDERED: REMDESIVIR 100 MG in NORMAL SALINE 250 ML IV SCH (22:00)
[2020-04-14] MEDS ORDERED: REMDESIVIR 200 MG in NORMAL SALINE 250 ML IV ONE (22:30)
--- NOTE | 2020-04-15 00:24 | XCELERA REPORT ---
[address] [address] Transthoracic Echocardiogram Report Name: MAYA BISWAS Age: 79 yrs Gender: Male : 1940 Patient Status: Inpatient Patient Location: [place] [address]^A Study Date: 04/13/2020 11:05 AM Height: 72 in Weight: 220 lb BSA: 2.2 m2 Procedure: A two-dimensional transthoracic echocardiogram with color flow and Doppler was performed. Study Quality: Technically suboptimal. Reason For Study: Possible new onset heart failure History: Possible new onset heart failure. Ordering Physician: JESSICA MCGEE Performed By: Angela William Interpretation Summary There is probably normal LVEF in one parasternal Long axis view.Otherwise echo is not interpretable.Recommend MUGA for LVEF. MMode/2D Measurements & Calculations RVDd: 2.9 cm LVIDd: 4.2 cm FS: 22.7 % Ao root diam: 3.6 cm IVSd: 1.1 cm LVIDs: 3.2 cm EDV(Teich): 77.5 ml Ao root area: 10.0 cm2 LVPWd: 1.1 cm ESV(Teich): 41.9 ml EF(Teich): 46.0 % Doppler Measurements & Calculations MV E max karine: 55.0 cm/sec MV dec slope: 343.0 cm/sec2 MV A max karine: 87.7 cm/sec MV dec time: 0.16 sec MV E/A: 0.63 Left Ventricle There is probably normal LVEF in one parasternal Long axis view.Otherwise echo is not interpretable.Recommend MUGA for LVEF. : JESSICA MCGEE Lakshmi
[2020-04-15 05:24] LABS: HEMATOCRIT 41.1 % (37.9-51.0); MEAN CORPUSCULAR HGB CONC 34.1 g/dL (32.0-36.0); MEAN CORPUSCULAR VOLUME 85 fl (80-97); PLATELET COUNT 343 10^3/uL (150-450); RED BLOOD COUNT 4.85 10^6/uL (4.35-5.55); WHITE BLOOD COUNT 18.2 10^3/uL (4.0-10.5)
[2020-04-15 06:01] LABS: ALBUMIN 2.9 g/dL (3.5-5.0); ALKALINE PHOSPHATASE 89 U/L (38-126); ANION GAP 9 (5-19); ASPARTATE AMINO TRANSFERASE 214 U/L (17-59); BILIRUBIN,DIRECT 0.1 mg/dL (0.0-0.4); BILIRUBIN,TOTAL 0.6 mg/dL (0.2-1.3); BLOOD UREA NITROGEN 40 mg/dL (7-20); CALCIUM 8.3 mg/dL (8.4-10.2); CARBON DIOXIDE 26 mmol/L (22-30); CHLORIDE 101 mmol/L (98-107); GLUCOSE 115 mg/dL (75-110); POTASSIUM 4.2 mmol/L (3.6-5.0); TOTAL PROTEIN 5.6 g/dL (6.3-8.2)
--- NOTE | 2020-04-15 09:25 | PDOC PROGRESS REPORT ---
Subjective Date:: 04/15/20 Subjective:: 79 year old male with a history of hypothyroidism and asthma who presents with 2 weeks duration of shortness of breath which has been progressively getting worse. Initially it was with exertion and he states that now he feels short of breath even at rest. Associated with this he also reports that he had a fever of 103 at home with cough productive of yellowish sputum. Patient also reports that he had generalized body aches. He states that he sleeps on a hospital bed due to her chronic longstanding back pain and recently he had to prop his head up more almost to a sitting position to sleep. He states that has on and off bilateral lower extremity swelling. On arrival at the ED patient was saturating around 88% on room air. He denies any nausea, vomiting, chest pain, palpitation, abdominal pain, diarrhea or any change in his urinary habit. 04/[id number]-gdyr-old male with history of asthma, hypothyroidism admitted with complaints of 2 weeks of shortness of breath. X-ray suggestive of bilateral pneumonia most likely viral. D-dimer is elevated at 1.59. Plan to do the CT of the chest rule out pulmonary embolism. COVID-19 test is pending. Socks is a 90% on 3 L at this time. Comfortably sitting on the edge of the bed communicating well. Denies any chest pains. pt Is not sure about the exposure to Covid. 04/14/[birth year]92-17-yfue-old male with history of asthma, hypothyroidism admitted with history of 2 weeks of shortness of breath. D-dimer was elevated at the time of admission. CTA is negative for pulmonary embolism. COVID-19 is pending at this time. Pulse ox is 94% on 6 L of oxygen. Gently on zinc, dexamethasone, Zithromax. Patient received convulsant plasma. 04/15/2020-elderly male with history of asthma admitted with shortness of breath found to have a COVID-19 positivity. Pulse oxes 94% on 5 L. Doing well. Complaining of constipation. Receiving dexamethasone, remdesivir, convulsant plasma, Zithromax, zinc sulfate, vitamin C. Reason For Visit: ACUTE HYPOXIC RESPIRATORY FAILURE SUSPECTED Physical Exam Vital Signs: Temp Pulse Resp BP Pulse Ox 97.6 F 81 20 124/81 93 04/15/20 07:40 04/15/20 07:12 04/15/20 07:12 04/15/20 07:12 04/15/20 07:12 Intake & Output 04/14/20 04/15/20 04/16/20 06:59 06:59 06:59 Intake Total 900 1080 Output Total 400 650 Balance 500 430 Weight 100 kg 103.4 kg General appearance: PRESENT: no acute distress, cooperative, well-developed Head exam: PRESENT: atraumatic Eye exam: PRESENT: PERRLA Mouth exam: PRESENT: dry mucosa Teeth exam: PRESENT: poor dentation Neck exam: ABSENT: carotid bruit, JVD, lymphadenopathy, thyromegaly Respiratory exam: PRESENT: decreased breath sounds Cardiovascular exam: PRESENT: RRR. ABSENT: diastolic murmur, rubs, systolic murmur GI/Abdominal exam: PRESENT: normal bowel sounds, soft. ABSENT: distended, gu arding, mass, organolmegaly, rebound, tenderness Rectal exam: PRESENT: deferred Extremities exam: PRESENT: full ROM. ABSENT: calf tenderness, clubbing, pedal edema Neurological exam: PRESENT: alert, awake, oriented to person, oriented to place, oriented to time, oriented to situation, CN II-XII grossly intact. ABSENT: mot or sensory deficit Psychiatric exam: PRESENT: appropriate affect, normal mood. ABSENT: homicidal ideation, suicidal ideation Results Laboratory Results: 04/15/20 04:54 04/15/20 04:54 04/15/20 04/15/20 04:54 04:54 WBC 18.2 H RBC 4.85 Hgb 14.0 Hct 41.1 MCV 85 MCH 29.0 MCHC 34.1 RDW 15.0 H Plt Count 343 Sodium 136.1 L Potassium 4.2 Chloride 101 Carbon Dioxide 26 Anion Gap 9 BUN 40 H Creatinine 0.82 Est GFR ( Amer) > 60 Glucose 115 H Calcium 8.3 L Magnesium 2.9 H Total Bilirubin 0.6 AST 214 H Alkaline Phosphatase 89 Total Protein 5.6 L Albumin 2.9 L 04/12/20 04/12/20 17:40 23:45 Creatine Kinase 78 NT-Pro-B Natriuret Pep 578 H Impressions: Chest X-Ray 04/12/20 16:03 IMPRESSION: Constellation of findings suggests CHF exacerbation. Infectious etiology is not excluded. Chest/Abdomen CTA 04/13/20 00:00 IMPRESSION: Bilateral ground-glass opacities which could represent pulmonary edema or atypical pneumonia. No pulmonary emboli. Stable dilatation of the ascending aorta with largest diameter measured 5 0.0 cm. 9.2 mm subpleural nodule demonstrated on series 4, image 42. As discussed above this has increased in size from prior exam. Assessment and Plan - Diagnosis (1) Acute respiratory failure with hypoxia Is this a current diagnosis for this admission?: Yes Plan: On presentation oxygen saturation was 88% on room air Likely due to viral pneumonia vs onset heart failure Currently saturating well on 2 L intranasal oxygen Chest x-ray shows cardiomegaly with pulmonary vascular congestion vs qu estionable bilateral infiltrates due to viral pneumonia COVID-19 test result pending Started on dexamethasone, zinc, vitamin C and vitamin D Continue intranasal oxygen and titrate for Pox >94% 04/13/2020-pulse ox is 97% on 3 L. Chest x-ray suggestive of viral pneumonia versus congestive heart failure. Presently on 3 L of oxygen. D-dimer is elevated plan to treat with a CT of the chest is requested to rule out pulmonary embolism. Covid test is pending. Presently in dexamethasone, zinc, vitamin C, and vitamin D. Patient is comfortably sitting in the edge of the bed communicating well. 04/14/2020-pulse ox is 96% on [address] scan indicated for bilateral pneumonia most likely viral pneumonia, negative for pulmonary embolism. Patient received convulsant plasma and receiving dexamethasone, zinc, vitamin C, vitamin D, Zithromax. We may be able to get COVID-19 results today. 04/15/2020-pulse ox is 94% on [address] scan ruled out pulmonary embolism but has bilateral pneumonia most likely viral pneumonia. COVID-19 came back positive. Plan is to continue the present management including treatment dose of Lovenox. (2) CHF (congestive heart failure) Qualifiers: Heart failure type: unspecified Heart failure chronicity: unspecified Qualified Code(s): I50.9 - Heart failure, unspecified Is this a current diagnosis for this admission?: No Plan: Presents with shortness of breath, orthopnea BNP elevated at 580 Chest x-ray shows cardiomegaly and pulmonary vascular congestion Started on Lasix, strict I&O's, daily weight and fluid restriction Will get echo 04/13/2020-patient came in with shortness of breath and orthopnea. BNP is elevated. Chest x-ray indicated with cardiomegaly and pulmonary vascular congestion. Patient was given Lasix 80 mg 1 dose in the ER. Echocardiogram is pending at this time. Patient denies any history of congestive heart failure. 04/14/20-echocardiogram was done results are pending at this time. Echocardiogram indicates normal left ventricular function. (3) Suspected COVID-19 virus infection Is this a current diagnosis for this admission?: Yes Plan: Presents with symptoms concerning for COVID-19 Chest x-ray shows signs of possible bilateral filtrates suggestive of viral pneumonia Continue dexamethasone 6 mg IV daily Currently on vitamin C, zinc, vitamin D Tylenol as needed for fever Follow-up with Covid result 04/13/2020-pulse ox is 90% on [address] of the chest is pending. D-dimer is elevated at 1.59. To start him on treatment dose of Lovenox. Continue dexamethasone, vitamin C, vitamin D and zinc. 04/14/2020-pulse oxes 94% on [address] of the chest is negative for pulmonary embolism. D-dimer is high patient is receiving treatment dose of Lovenox at this time. 04/15/2020-pulse oxes 94% on [address] scan suggestive of bilateral viral pneumonia. Receiving treatment dose of Lovenox for high D-dimer. (4) Elevated liver enzymes Is this a current diagnosis for this admission?: Yes Plan: AST/ALT/alk phos: 349/237/129 Will get hepatitis panel Consider RUQ abdominal ultrasound Monitor liver enzymes 04/14/20-LFTs are slightly elevated. Plan is to recheck the labs tomorrow. (5) History of asthma Is this a current diagnosis for this admission?: No Plan: Currently stable and not in acute exacerbation Continue to monitor Albuterol inhaler as needed (6) Hypothyroidism Is this a current diagnosis for this admission?: No Plan: Currently patient denies hypo or hyperthyroid symptoms He states that he is not on any medication right now For pain TSH in the morning - Time Anticipated Discharge Disposition: Home, Self Care Anticipated Discharge Timeframe: within 72 hours
[2020-04-15] MEDS: AZITHROMYCIN 250 MG TABLET PO SCH (09:48)
[2020-04-15] MEDS: FAMOTIDINE 20 MG TABLET PO SCH ×2 (09:48→22:49)
[2020-04-15] MEDS: ENOXAPARIN SODIUM INJ 100 MG/1 ML DISP.SYRIN SUBCUT SCH ×2 (09:48→22:49)
[2020-04-15] MEDS: ASCORBIC ACID 500 MG TABLET PO SCH ×2 (09:48→17:04)
[2020-04-15] MEDS: CHOLECALCIFEROL (D3) 1,000 UNIT (25 MCG) TABLET PO SCH (09:48)
[2020-04-15] MEDS: ZINC SULFATE 220 MG CAPSULE PO SCH (09:48)
[2020-04-15] MEDS: DEXAMETHASONE SOD PHOS INJ 10 MG/1 ML VIAL IV SCH (09:48)
[2020-04-15] MEDS ORDERED: MAGNESIUM CITRATE 296 ML BOTTLE PO ONE (10:00)
[2020-04-15] MEDS: REMDESIVIR 100 MG in NORMAL SALINE 250 ML IV SCH (22:49)
[2020-04-16 06:21] LABS: ABSOLUTE LYMPHOCYTES (AUTO) 0.8 10^3/uL (0.5-4.7); ABSOLUTE MONOCYTES (AUTO) 1.2 10^3/uL (0.1-1.4); ABSOLUTE NEUT (AUTO) 10.2 10^3/uL (1.7-8.2); BASOPHILS % (AUTO) 0.2 % (0-2); EOSINOPHILS % (AUTO) 0.1 % (0-6); HEMATOCRIT 39.7 % (37.9-51.0); HEMOGLOBIN 13.8 g/dL (13.5-17.0); LYMPHOCYTES % (AUTO) 6.2 % (13-45); MEAN CORPUSCULAR HEMOGLOBIN 29.5 pg (27.0-33.4); MEAN CORPUSCULAR HGB CONC 34.8 g/dL (32.0-36.0); MEAN CORPUSCULAR VOLUME 85 fl (80-97); MONOCYTES % (AUTO) 9.9 % (3-13); PLATELET COUNT 296 10^3/uL (150-450); RED BLOOD COUNT 4.68 10^6/uL (4.35-5.55); RED CELL DISTRIBUTION WIDTH 14.4 % (11.5-14.0); SEGMENTED NEUTROPHILS % (AUTO) 83.6 % (42-78); TOTAL CELLS COUNTED % (AUTO) 100 %; WHITE BLOOD COUNT 12.2 10^3/uL (4.0-10.5)
[2020-04-16 06:52] LABS: ALBUMIN 2.8 g/dL (3.5-5.0); ALKALINE PHOSPHATASE 88 U/L (38-126); ANION GAP 8 (5-19); ASPARTATE AMINO TRANSFERASE 123 U/L (17-59); BILIRUBIN,DIRECT 0.2 mg/dL (0.0-0.4); BILIRUBIN,TOTAL 0.6 mg/dL (0.2-1.3); BLOOD UREA NITROGEN 30 mg/dL (7-20); CALCIUM 8.1 mg/dL (8.4-10.2); CARBON DIOXIDE 29 mmol/L (22-30); CHLORIDE 101 mmol/L (98-107); GLUCOSE 86 mg/dL (75-110); POTASSIUM 4.5 mmol/L (3.6-5.0); TOTAL PROTEIN 5.7 g/dL (6.3-8.2)
[2020-04-16] MEDS: FAMOTIDINE 20 MG TABLET PO SCH ×2 (11:02→21:25)
[2020-04-16] MEDS: ENOXAPARIN SODIUM INJ 100 MG/1 ML DISP.SYRIN SUBCUT SCH ×2 (11:02→21:25)
[2020-04-16] MEDS: CHOLECALCIFEROL (D3) 1,000 UNIT (25 MCG) TABLET PO SCH (11:02)
[2020-04-16] MEDS: AZITHROMYCIN 250 MG TABLET PO SCH (11:02)
[2020-04-16] MEDS: ZINC SULFATE 220 MG CAPSULE PO SCH (11:02)
[2020-04-16] MEDS: ASCORBIC ACID 500 MG TABLET PO SCH ×2 (11:02→17:39)
[2020-04-16] MEDS: DEXAMETHASONE SOD PHOS INJ 10 MG/1 ML VIAL IV SCH (11:07)
[2020-04-16] MEDS: IPRATROPIUM/ALBUTEROL 0.5-2.5 MG/3 ML AMPUL NEB PRN (12:53)
--- NOTE | 2020-04-16 16:46 | PDOC PROGRESS REPORT ---
Subjective Date:: 04/16/20 Subjective:: No adverse events overnight. No new complaints. Vital signs been stable. He s aid he feels pretty good overall. He was down to 6 L on the nasal cannula, he was on 9 overnight. His saturations on 6 L have been in the 88 to 92% range. Reason For Visit: ACUTE HYPOXIC RESPIRATORY FAILURE SUSPECTED Physical Exam Vital Signs: Temp Pulse Resp BP Pulse Ox 97.5 F 68 28 H 123/71 88 L 04/16/20 11:26 04/16/20 12:53 04/16/20 12:53 04/16/20 11:26 04/16/20 12:53 Intake & Output 04/15/20 04/16/20 04/17/20 06:59 06:59 06:59 Intake Total 1080 0 250 Output Total 650 300 Balance 430 -300 250 Weight 103.4 kg 104 kg General appearance: PRESENT: no acute distress, cooperative, disheveled, obese Respiratory exam: PRESENT: decreased breath sounds, symmetrical, unlabored. ABSENT: accessory muscle use, chest wall tenderness, crackles, prolonged expiratory phas, rhonchi, tachypnea, wheezes Cardiovascular exam: PRESENT: RRR, +S1, +S2 Pulses: PRESENT: normal carotid pulses Vascular exam: PRESENT: normal capillary refill GI/Abdominal exam: PRESENT: normal bowel sounds, soft. ABSENT: distended, guarding, rebound, tenderness Extremities exam: ABSENT: clubbing, pedal edema Musculoskeletal exam: PRESENT: normal inspection. ABSENT: deformity Neurological exam: PRESENT: alert, awake, oriented to person, oriented to place, oriented to situation Psychiatric exam: PRESENT: appropriate affect, normal mood Skin exam: PRESENT: dry, warm Results Laboratory Results: 04/16/20 05:15 04/16/20 05:15 04/13/20 04/16/20 04/16/20 19:18 05:15 05:15 WBC 12.2 H RBC 4.68 Hgb 13.8 Hct 39.7 MCV 85 MCH 29.5 MCHC 34.8 RDW 14.4 H Plt Count 296 Seg Neutrophils % 83.6 H Sodium 138.0 Potassium 4.5 Chloride 101 Carbon Dioxide 29 Anion Gap 8 BUN 30 H Creatinine 0.78 Est GFR ( Amer) > 60 Glucose 86 Calcium 8.1 L Magnesium 2.9 H Total Bilirubin 0.6 AST 123 H Alkaline Phosphatase 88 Total Protein 5.7 L Albumin 2.8 L Blood Type O POSITIVE 04/12/20 04/12/20 17:40 23:45 Creatine Kinase 78 NT-Pro-B Natriuret Pep 578 H Impressions: Chest X-Ray 04/12/20 16:03 IMPRESSION: Constellation of findings suggests CHF exacerbation. Infectious et iology is not excluded. Chest/Abdomen CTA 04/13/20 00:00 IMPRESSION: Bilateral ground-glass opacities which could represent pulmonary edema or atypical pneumonia. No pulmonary emboli. Stable dilatation of the ascending aorta with largest diameter measured 5 0.0 cm. 9.2 mm subpleural nodule demonstrated on series 4, image 42. As discussed above this has increased in size from prior exam. Assessment and Plan - Diagnosis (1) Acute respiratory failure with hypoxia Is this a current diagnosis for this admission?: Yes (2) Pneumonia due to COVID-19 virus Is this a current diagnosis for this admission?: Yes (3) Elevated liver enzymes Is this a current diagnosis for this admission?: Yes (4) History of asthma Is this a current diagnosis for this admission?: Yes (5) Hypothyroidism Qualifiers: Hypothyroidism type: other Qualified Code(s): E03.8 - Other specified hypothyroidism Is this a current diagnosis for this admission?: Yes - Plan Summary Summary: Continue Decadron. Remdesivir was started. Doing well, down to 6 L on nasal cannula. Echocardiogram was unable to be interpreted, but given that his BNP was only 578, I doubt that he has heart failure. Even if he did have heart failure, he is not exacerbated. Continue to wean O2 as tolerated, continue supportive care. - Time Time Spent with patient: 15-24 minutes Anticipated Discharge Disposition: Unknown Anticipated Discharge Timeframe: Unknown
[2020-04-16] MEDS: REMDESIVIR 100 MG in NORMAL SALINE 250 ML IV SCH (21:25)
[2020-04-17] MEDS: CHOLECALCIFEROL (D3) 1,000 UNIT (25 MCG) TABLET PO SCH (10:04)
[2020-04-17] MEDS: FAMOTIDINE 20 MG TABLET PO SCH ×2 (10:04→21:14)
[2020-04-17] MEDS: ENOXAPARIN SODIUM INJ 100 MG/1 ML DISP.SYRIN SUBCUT SCH ×2 (10:04→21:14)
[2020-04-17] MEDS: AZITHROMYCIN 250 MG TABLET PO SCH (10:04)
[2020-04-17] MEDS: DEXAMETHASONE SOD PHOS INJ 10 MG/1 ML VIAL IV SCH (10:04)
[2020-04-17] MEDS: ZINC SULFATE 220 MG CAPSULE PO SCH (10:04)
[2020-04-17] MEDS: ASCORBIC ACID 500 MG TABLET PO SCH ×2 (10:05→18:24)
--- NOTE | 2020-04-17 15:05 | PDOC PROGRESS REPORT ---
Subjective Date:: 04/17/20 Subjective:: No adverse events overnight. No new complaints. He has been eating and drinkin g without difficulty. He was down to 3 L whenever I saw him this morning and he said he was feeling fine. He has been ambulating some in the room on oxygen without difficulty. Reason For Visit: ACUTE HYPOXIC RESPIRATORY FAILURE SUSPECTED Physical Exam Vital Signs: Temp Pulse Resp BP Pulse Ox 97.7 F 68 20 141/70 H 92 04/17/20 11:19 04/17/20 11:19 04/17/20 11:19 04/17/20 11:19 04/17/20 11:19 Intake & Output 04/16/20 04/17/20 04/18/20 06:59 06:59 06:59 Intake Total 0 750 490 Output Total 300 375 Balance -300 375 490 Weight 104 kg 103.8 kg General appearance: PRESENT: no acute distress, cooperative, disheveled, obese Respiratory exam: PRESENT: decreased breath sounds, symmetrical, unlabored. ABSENT: accessory muscle use, chest wall tenderness, crackles, prolonged expiratory phas, rhonchi, tachypnea, wheezes Cardiovascular exam: PRESENT: RRR, +S1, +S2 Pulses: PRESENT: normal carotid pulses Vascular exam: PRESENT: normal capillary refill GI/Abdominal exam: PRESENT: normal bowel sounds, soft. ABSENT: distended, guarding, rebound, tenderness Extremities exam: ABSENT: clubbing, pedal edema Musculoskeletal exam: PRESENT: normal inspection. ABSENT: deformity Neurological exam: PRESENT: alert, awake, oriented to person, oriented to place, oriented to situation Psychiatric exam: PRESENT: appropriate affect, normal mood Skin exam: PRESENT: dry, warm Results Laboratory Results: 04/16/20 05:15 04/16/20 05:15 04/12/20 04/12/20 17:40 23:45 Creatine Kinase 78 NT-Pro-B Natriuret Pep 578 H Impressions: Chest X-Ray 04/12/20 16:03 IMPRESSION: Constellation of findings suggests CHF exacerbation. Infectious etiology is not excluded. Chest/Abdomen CTA 04/13/20 00:00 IMPRESSION: Bilateral ground-glass opacities which could represent pulmonary edema or atypical pneumonia. No pulmonary emboli. Stable dilatation of the ascending aorta with largest diameter measured 5 0.0 cm. 9.2 mm subpleural nodule demonstrated on series 4, image 42. As discussed above this has increased in size from prior exam. Assessment and Plan - Diagnosis (1) Acute respiratory failure with hypoxia Is this a current diagnosis for this admission?: Yes (2) Pneumonia due to COVID-19 virus Is this a current diagnosis for this admission?: Yes (3) Elevated liver enzymes Is this a current diagnosis for this admission?: Yes (4) History of asthma Is this a current diagnosis for this admission?: Yes (5) Hypothyroidism Qualifiers: Hypothyroidism type: other Qualified Code(s): E03.8 - Other specified hypothyroidism Is this a current diagnosis for this admission?: Yes - Plan Summary Summary: Continue Decadron. Remdesivir was started. Doing well, down to 3 L on nasal cannula. Echocardiogram was unable to be interpreted, but given that his BNP was only 578, I doubt that he has heart failure. Even if he did have heart failure, he is not exacerbated. Continue to wean O2 as tolerated, continue supportive care. Will we can get him onto room air we can send him home. This could happen as early as tomorrow. - Time Time Spent with patient: 15-24 minutes Anticipated Discharge Disposition: Home, Self Care Anticipated Discharge Timeframe: within 48 hours
[2020-04-17] MEDS: REMDESIVIR 100 MG in NORMAL SALINE 250 ML IV SCH (21:14)
[2020-04-18 06:36] LABS: HEMATOCRIT 42.2 % (37.9-51.0); HEMOGLOBIN 14.3 g/dL (13.5-17.0); MEAN CORPUSCULAR HEMOGLOBIN 28.9 pg (27.0-33.4); MEAN CORPUSCULAR HGB CONC 33.8 g/dL (32.0-36.0); MEAN CORPUSCULAR VOLUME 86 fl (80-97); PLATELET COUNT 302 10^3/uL (150-450); RED BLOOD COUNT 4.94 10^6/uL (4.35-5.55); RED CELL DISTRIBUTION WIDTH 14.6 % (11.5-14.0); WHITE BLOOD COUNT 12.6 10^3/uL (4.0-10.5)
[2020-04-18] MEDS: AZITHROMYCIN 250 MG TABLET PO SCH (09:43)
[2020-04-18] MEDS: ZINC SULFATE 220 MG CAPSULE PO SCH (09:43)
[2020-04-18] MEDS: ASCORBIC ACID 500 MG TABLET PO SCH ×2 (09:43→18:14)
[2020-04-18] MEDS: CHOLECALCIFEROL (D3) 1,000 UNIT (25 MCG) TABLET PO SCH (09:43)
[2020-04-18] MEDS: FAMOTIDINE 20 MG TABLET PO SCH ×2 (09:43→21:50)
[2020-04-18] MEDS: DEXAMETHASONE SOD PHOS INJ 10 MG/1 ML VIAL IV SCH (09:44)
[2020-04-18] MEDS: ENOXAPARIN SODIUM INJ 100 MG/1 ML DISP.SYRIN SUBCUT SCH ×2 (09:44→21:50)
[2020-04-18] MEDS ORDERED: SENNOSIDES/DOCUSATE 8.6-50 MG 1 EACH TABLET PO PRN (11:31)
[2020-04-18] MEDS: POLYETHYLENE GLYCOL 3350 POWDER 17 GM/1 PACKET PO SCH (12:22)
[2020-04-18 12:48] LABS: APPEARANCE,URINE CLEAR; BILIRUBIN,URINE NEGATIVE (NEGATIVE); COLOR,URINE YELLOW; GLUCOSE, URINE NEGATIVE (NEGATIVE); KETONES,URINE NEGATIVE (NEGATIVE); LEUKOCYTE ESTERASE,URINE NEGATIVE (NEGATIVE); NITRITE,URINE NEGATIVE (NEGATIVE); PROTEIN,URINE NEGATIVE (NEGATIVE); URINE SPECIFIC GRAVITY 1.013; UROBILINOGEN,URINE NEGATIVE mg/dL (<2.0)
--- NOTE | 2020-04-18 16:47 | PDOC PROGRESS REPORT ---
Subjective Date:: 04/18/20 Subjective:: No adverse events overnight. No new complaints. He has been on 5 L per nasal c annula. He said he feels fine. We attempted to wean him down to 3 L today to see if he would tolerate. So far he is doing fine. Reason For Visit: ACUTE HYPOXIC RESPIRATORY FAILURE,PNEUMONIA Physical Exam Vital Signs: Temp Pulse Resp BP Pulse Ox 97.6 F 68 16 137/89 H 90 L 04/18/20 11:49 04/18/20 14:00 04/18/20 09:00 04/18/20 11:49 04/18/20 11:49 Intake & Output 04/17/20 04/18/20 04/19/20 06:59 06:59 06:59 Intake Total 750 1000 Output Total 375 200 Balance 375 800 Weight 103.8 kg 103.7 kg General appearance: PRESENT: no acute distress, cooperative, disheveled, obese Respiratory exam: PRESENT: decreased breath sounds, symmetrical, unlabored. ABSENT: accessory muscle use, chest wall tenderness, crackles, prolonged expiratory phas, rhonchi, tachypnea, wheezes Cardiovascular exam: PRESENT: RRR, +S1, +S2 Pulses: PRESENT: normal carotid pulses Vascular exam: PRESENT: normal capillary refill GI/Abdominal exam: PRESENT: normal bowel sounds, soft. ABSENT: distended, guarding, rebound, tenderness Extremities exam: ABSENT: clubbing, pedal edema Musculoskeletal exam: PRESENT: normal inspection. ABSENT: deformity Neurological exam: PRESENT: alert, awake, oriented to person, oriented to place, oriented to situation Psychiatric exam: PRESENT: appropriate affect, normal mood Skin exam: PRESENT: dry, warm Results Laboratory Results: 04/18/20 05:35 04/16/20 05:15 04/18/20 04/18/20 05:35 11:47 WBC 12.6 H RBC 4.94 Hgb 14.3 Hct 42.2 MCV 86 MCH 28.9 MCHC 33.8 RDW 14.6 H Plt Count 302 Urine Color YELLOW Urine Appearance CLEAR Urine pH 8.0 Ur Specific [place] 1.013 Urine Protein NEGATIVE Urine Glucose (UA) NEGATIVE Urine Ketones NEGATIVE Urine Blood NEGATIVE Urine Nitrite NEGATIVE Ur Leukocyte Esterase NEGATIVE Urine WBC (Auto) 1 Urine RBC (Auto) 1 04/12/20 22:08 Blood Blood Culture - Final NO GROWTH IN 5 DAYS 04/12/20 19:20 Blood Blood Culture - Final NO GROWTH IN 5 DAYS 04/12/20 04/12/20 17:40 23:45 Creatine Kinase 78 NT-Pro-B Natriuret Pep 578 H Impressions: Chest X-Ray 04/12/20 16:03 IMPRESSION: Constellation of findings suggests CHF exacerbation. Infectious etiology is not excluded. Chest/Abdomen CTA 04/13/20 00:00 IMPRESSION: Bilateral ground-glass opacities which could represent pulmonary edema or atypical pneumonia. No pulmonary emboli. Stable dilatation of the ascending aorta with largest diameter measured 5 0.0 cm. 9.2 mm subpleural nodule demonstrated on series 4, image 42. As discussed above this has increased in size from prior exam. Assessment and Plan - Diagnosis (1) Acute respiratory failure with hypoxia Is this a current diagnosis for this admission?: Yes (2) Pneumonia due to COVID-19 virus Is this a current diagnosis for this admission?: Yes (3) Elevated liver enzymes Is this a current diagnosis for this admission?: Yes (4) History of asthma Is this a current diagnosis for this admission?: Yes (5) Hypothyroidism Qualifiers: Hypothyroidism type: other Qualified Code(s): E03.8 - Other specified hypothyroidism Is this a current diagnosis for this admission?: Yes - Plan Summary Summary: Continue Decadron. Remdesivir was started. Doing well, down to 3 L on nasal cannula. Echocardiogram was unable to be interpreted, but given that his BNP was only 578, I doubt that he has heart failure. Even if he did have heart failure, he is not exacerbated. Continue to wean O2 as tolerated, continue supportive care. Will we can get him onto room air we can send him home. If we cannot do so in the next day or so, we may have to send him home on oxygen for a brief period of time. - Time Time Spent with patient: 15-24 minutes Anticipated Discharge Disposition: Home with Home Health Anticipated Discharge Timeframe: within 72 hours
[2020-04-18] MEDS: REMDESIVIR 100 MG in NORMAL SALINE 250 ML IV SCH (21:50)
[2020-04-19] MEDS: FAMOTIDINE 20 MG TABLET PO SCH ×2 (09:22→23:08)
[2020-04-19] MEDS: CHOLECALCIFEROL (D3) 1,000 UNIT (25 MCG) TABLET PO SCH (09:22)
[2020-04-19] MEDS: AZITHROMYCIN 250 MG TABLET PO SCH (09:23)
[2020-04-19] MEDS: ZINC SULFATE 220 MG CAPSULE PO SCH (09:23)
[2020-04-19] MEDS: POLYETHYLENE GLYCOL 3350 POWDER 17 GM/1 PACKET PO SCH (09:23)
[2020-04-19] MEDS: ENOXAPARIN SODIUM INJ 100 MG/1 ML DISP.SYRIN SUBCUT SCH ×2 (09:23→23:08)
[2020-04-19] MEDS: ASCORBIC ACID 500 MG TABLET PO SCH ×2 (09:24→17:30)
[2020-04-19] MEDS: DEXAMETHASONE SOD PHOSPHATE INJ 4 MG/1 ML VIAL IV SCH ×2 (10:29→23:08)
--- NOTE | 2020-04-19 15:22 | PDOC PROGRESS REPORT ---
Subjective Date:: 04/19/20 Subjective:: No adverse events overnight. The nasal cannula is irritating his nose, otherwis e he has no complaints. He is down to 1 L on the nasal cannula but is still 90% on 1 L at best. Reason For Visit: ACUTE HYPOXIC RESPIRATORY FAILURE,PNEUMONIA Physical Exam Vital Signs: Temp Pulse Resp BP Pulse Ox 97.7 F 68 19 139/86 H 90 L 04/19/20 07:38 04/19/20 14:00 04/19/20 07:38 04/19/20 07:38 04/19/20 07:38 Intake & Output 04/18/20 04/19/20 04/20/20 06:59 06:59 06:59 Intake Total 1000 450 Output Total 200 600 Balance 800 -150 Weight 103.7 kg 104.1 kg General appearance: PRESENT: no acute distress, cooperative, disheveled, obese Respiratory exam: PRESENT: decreased breath sounds, symmetrical, unlabored. ABSENT: accessory muscle use, chest wall tenderness, crackles, prolonged expiratory phas, rhonchi, tachypnea, wheezes Cardiovascular exam: PRESENT: RRR, +S1, +S2 Pulses: PRESENT: normal carotid pulses Vascular exam: PRESENT: normal capillary refill GI/Abdominal exam: PRESENT: normal bowel sounds, soft. ABSENT: distended, guarding, rebound, tenderness Extremities exam: ABSENT: clubbing, pedal edema Musculoskeletal exam: PRESENT: normal inspection. ABSENT: deformity Neurological exam: PRESENT: alert, awake, oriented to person, oriented to place, oriented to situation Psychiatric exam: PRESENT: appropriate affect, normal mood Skin exam: PRESENT: dry, warm Results Laboratory Results: 04/18/20 05:35 04/16/20 05:15 04/12/20 04/12/20 17:40 23:45 Creatine Kinase 78 NT-Pro-B Natriuret Pep 578 H Impressions: Chest X-Ray 04/12/20 16:03 IMPRESSION: Constellation of findings suggests CHF exacerbation. Infectious etiology is not excluded. Chest/Abdomen CTA 04/13/20 00:00 IMPRESSION: Bilateral ground-glass opacities which could represent pulmonary edema or atypical pneumonia. No pulmonary emboli. Stable dilatation of the ascending aorta with largest diameter measured 5 0.0 cm. 9.2 mm subpleural nodule demonstrated on series 4, image 42. As discussed above this has increased in size from prior exam. Assessment and Plan - Diagnosis (1) Acute respiratory failure with hypoxia Is this a current diagnosis for this admission?: Yes (2) Pneumonia due to COVID-19 virus Is this a current diagnosis for this admission?: Yes (3) Elevated liver enzymes Is this a current diagnosis for this admission?: Yes (4) History of asthma Is this a current diagnosis for this admission?: Yes (5) Hypothyroidism Qualifiers: Hypothyroidism type: other Qualified Code(s): E03.8 - Other specified hypothyroidism Is this a current diagnosis for this admission?: Yes - Plan Summary Summary: Continue Decadron. Remdesivir was completed. Doing well, down to 1 L on nasal cannula. Echocardiogram was unable to be interpreted, but given that his BNP was only 578, I doubt that he has heart failure. Even if he did have heart failure, he is not exacerbated. Continue to wean O2 as tolerated, continue supportive care. He is very close to being off oxygen. I think we should give him 1 more day to see if we can get him off oxygen. If we do not have him off oxygen by tomorrow, we should probably try to set it up for him on a short-term basis at home. - Time Time Spent with patient: 15-24 minutes Anticipated Discharge Disposition: Home, Self Care Anticipated Discharge Timeframe: within 48 hours
[2020-04-20 06:44] LABS: APPEARANCE,URINE SLIGHTLY-CLOUDY; BILIRUBIN,URINE NEGATIVE (NEGATIVE); COLOR,URINE YELLOW; GLUCOSE, URINE NEGATIVE (NEGATIVE); KETONES,URINE TRACE mg/dL (NEGATIVE); LEUKOCYTE ESTERASE,URINE NEGATIVE (NEGATIVE); NITRITE,URINE NEGATIVE (NEGATIVE); PROTEIN,URINE 30 mg/dL (NEGATIVE); URINE SPECIFIC GRAVITY 1.021
[2020-04-20 06:52] LABS: HEMATOCRIT 46.8 % (37.9-51.0); HEMOGLOBIN 15.7 g/dL (13.5-17.0); MEAN CORPUSCULAR HEMOGLOBIN 28.8 pg (27.0-33.4); MEAN CORPUSCULAR HGB CONC 33.6 g/dL (32.0-36.0); MEAN CORPUSCULAR VOLUME 86 fl (80-97); PLATELET COUNT 348 10^3/uL (150-450); RED BLOOD COUNT 5.47 10^6/uL (4.35-5.55); RED CELL DISTRIBUTION WIDTH 15.2 % (11.5-14.0)
[2020-04-20] MEDS: DEXAMETHASONE SOD PHOSPHATE INJ 4 MG/1 ML VIAL IV SCH (11:06)
[2020-04-20] MEDS: ENOXAPARIN SODIUM INJ 100 MG/1 ML DISP.SYRIN SUBCUT SCH (11:06)
[2020-04-20] MEDS: CHOLECALCIFEROL (D3) 1,000 UNIT (25 MCG) TABLET PO SCH (11:06)
[2020-04-20] MEDS: FAMOTIDINE 20 MG TABLET PO SCH (11:06)
[2020-04-20] MEDS: ASCORBIC ACID 500 MG TABLET PO SCH ×2 (11:06→17:13)
[2020-04-20] MEDS: POLYETHYLENE GLYCOL 3350 POWDER 17 GM/1 PACKET PO SCH ×2 (11:06→11:21)
[2020-04-20] MEDS: ZINC SULFATE 220 MG CAPSULE PO SCH (11:07)
[2020-04-20 16:31] LABS: APPEARANCE,URINE SLIGHTLY-CLOUDY; BILIRUBIN,URINE NEGATIVE (NEGATIVE); COLOR,URINE YELLOW; GLUCOSE, URINE NEGATIVE (NEGATIVE); KETONES,URINE NEGATIVE (NEGATIVE); LEUKOCYTE ESTERASE,URINE NEGATIVE (NEGATIVE); NITRITE,URINE NEGATIVE (NEGATIVE); PROTEIN,URINE NEGATIVE (NEGATIVE); URINE SPECIFIC GRAVITY 1.024; UROBILINOGEN,URINE NEGATIVE mg/dL (<2.0)
[2020-04-20 18:10] VITALS: BP 139/76
[2020-04-20] MEDS ORDERED: ATORVASTATIN CALCIUM 80 MG TABLET PO SCH (22:00)
[2020-04-21] MEDS ORDERED: LEVOTHYROXINE SODIUM 0.075 MG TABLET PO SCH (06:00)
[2020-04-21] MEDS ORDERED: LEVOTHYROXINE SODIUM 0.05 MG TABLET PO SCH (10:00)
--- NOTE | 2020-04-25 14:51 | PDOC DISCHARGE SUMMARY ---
Impression - Admit/DC Date/PCP Admission Date/Primary Care Provider: 04/12/20 22:37 CASSIE ARGUETA MD Discharge Date: 04/20/20 - Discharge Diagnosis (1) Acute respiratory failure with hypoxia Is this a current diagnosis for this admission?: Yes (2) Elevated liver enzymes Is this a current diagnosis for this admission?: Yes (3) History of asthma Is this a current diagnosis for this admission?: Yes (4) Hypothyroidism Is this a current diagnosis for this admission?: Yes (5) Pneumonia due to COVID-19 virus Is this a current diagnosis for this admission?: Yes - Additional Information Resuscitation Status: Full Code Discharge Diet: As Tolerated Discharge Activity: Activity As Tolerated Referrals: CASSIE ARGUETA MD [Primary Care Provider] - Follow up as needed (Office stated that they will call patient to arrange follow-up.) Home Medications: Telmisartan [Micardis 20 mg Tablet] 40 mg PO DAILY 01/21/12 Albuterol Sulfate [Proair HFA Inhalation Aerosol 8.5 gm MDI] 1 puff IH Q4HP PRN 12/06/15 Fexofenadine HCl [Sydnie] 180 mg PO DAILY 12/06/15 Fluticasone Propionate 1 dose NS DAILY PRN 12/06/15 Levothyroxine Sodium [Synthroid] 75 mcg PO DAILY 12/06/15 Atorvastatin Calcium [Lipitor 80 mg Tablet] 80 mg PO QHS 04/13/20 Fluticasone Propion/Salmeterol [Advair HFA 45-21 mcg Inhaler] 2 puff IH BID 04/13/20 Multivitamin [Tab-A-Ovidio (Multiple Vitamin) Tablet] 1 tab PO DAILY 04/13/20 Sildenafil Citrate 100 mg PO DAILY 04/13/20 Triamterene/Hydrochlorothiazid [Triamterene-Hctz 37.5-25 mg Tb] 1 each PO DAILY 04/13/20 Umeclidinium Brm/Vilanterol Tr [Anoro Ellipta 62.5-25 Mcg INH] 1 each IH DAILY 04/13/20 History of Present Illiness History of Present Illness: [facility] [address] [place] [address]. [place] [address] As per admitting physician's note MAYA BISWAS is a 79 year old male with a history of hypothyroidism and asthma who presents with 2 weeks duration of shortness of breath which has been progressively getting worse. Initially it was with exertion and he states that now he feels short of breath even at rest. Associated with this he also reports that he had a fever of 103 at home with cough productive of yellowish sputum. Patient also reports that he had generalized body aches. He states that he sleeps on a hospital bed due to her chronic longstanding back pain and recently he had to prop his head up more almost to a sitting position to sleep. He states that has on and off bilateral lower extremity swelling. On arrival at the ED patient was saturating around 88% on room air. He denies any nausea, vomiting, chest pain, palpitation, abdominal pain, diarrhea or any change in his urinary habit. Hospital Course Hospital Course: (1) Acute respiratory failure with hypoxia Resolved. SPO2 WNL on RA at the time of discharge. On presentation oxygen saturation was 88% on room air Likely due to COVID-19 pneumonia Chest x-ray on admission cardiomegaly with pulmonary vascular congestion vs questionable bilateral infiltrates due to viral pneumonia Started on empiric IV antibiotics, IV steroids, remdesivir, convalescent plasma, zinc, vitamin C and vitamin D (2) Suspected COVID-19 virus infection As out#1. (3) Elevated liver enzymes Most likely due to COVID-19 pneumonia On admission AST/ALT/alk phos: 349/237/129 Trended down but not back to normal levels. Viral hepatitis panel negative. Advised to follow-up with PCP for evaluation of liver chemistries. (4) History of asthma. Was restarted on home meds. Advised to resume home meds upon discharge. (5) Hypothyroidism Denied hypo or hyperthyroid symptoms Restarted on home medications. Physical Exam Vital Signs: Temp Pulse Resp BP Pulse Ox 97.8 F 76 16 139/76 H 93 04/20/20 18:04 04/20/20 18:04 04/20/20 18:04 04/20/20 18:04 04/20/20 18:04 General appearance: PRESENT: no acute distress, obese, well-developed, well- nourished Head exam: PRESENT: atraumatic, normocephalic Respiratory exam: PRESENT: clear to auscultation alden. ABSENT: rales, rhonchi, wheezes Cardiovascular exam: PRESENT: RRR. ABSENT: diastolic murmur, rubs, systolic murmur GI/Abdominal exam: PRESENT: normal bowel sounds, soft. ABSENT: distended, guarding, mass, organolmegaly, rebound, tenderness Neurological exam: PRESENT: alert, awake, oriented to person, oriented to place, oriented to time, oriented to situation, CN II-XII grossly intact. ABSENT: motor sensory deficit Skin exam: PRESENT: dry, intact, warm. ABSENT: cyanosis, rash Results Laboratory Results: WBC 10.0 10^3/uL (4.0-10.5) 04/20/20 05:24 RBC 5.47 10^6/uL (4.35-5.55) 04/20/20 05:24 Hgb 15.7 g/dL (13.5-17.0) 04/20/20 05:24 Hct 46.8 % (37.9-51.0) 04/20/20 05:24 MCV 86 fl (80-97) 04/20/20 05:24 MCH 28.8 pg (27.0-33.4) 04/20/20 05:24 MCHC 33.6 g/dL (32.0-36.0) 04/20/20 05:24 RDW 15.2 % (11.5-14.0) H 04/20/20 05:24 Plt Count 348 10^3/uL (150-450) 04/20/20 05:24 Lymph % (Auto) 6.2 % (13-45) L 04/16/20 05:15 [facility] % (Auto) 9.9 % (3-13) 04/16/20 05:15 Eos % (Auto) 0.1 % (0-6) 04/16/20 05:15 Baso % (Auto) 0.2 % (0-2) 04/16/20 05:15 Absolute Neuts (auto) 10.2 10^3/uL (1.7-8.2) H 04/16/20 05:15 Absolute Lymphs (auto) 0.8 10^3/uL (0.5-4.7) 04/16/20 05:15 Absolute Monos (auto) 1.2 10^3/uL (0.1-1.4) 04/16/20 05:15 Absolute Eos (auto) 0.0 10^3/uL (0.0-0.6) 04/16/20 05:15 Absolute Basos (auto) 0.0 10^3/uL (0.0-0.2) 04/16/20 05:15 Total Counted 100 04/14/20 04:50 Seg Neutrophils % 83.6 % (42-78) H 04/16/20 05:15 Seg Neuts % (Manual) 87 % (42-78) H 04/14/20 04:50 Band Neutrophils % 6 % (3-5) H 04/14/20 04:50 Lymphocytes % (Manual) 4 % (13-45) L 04/14/20 04:50 Monocytes % (Manual) 3 % (3-13) 04/14/20 04:50 Eosinophils % (Manual) 0 % (0-6) 04/14/20 04:50 Basophils % (Manual) 0 % (0-2) 04/14/20 04:50 Abs Neuts (Manual) 20.4 10^3/uL (1.7-8.2) H 04/14/20 04:50 Abs Lymphs (Manual) 0.9 10^3/uL (0.5-4.7) 04/14/20 04:50 Abs Monocytes (Manual) 0.7 10^3/uL (0.1-1.4) 04/14/20 04:50 Absolute Eos (Manual) 0.0 10^3/uL (0.0-0.6) 04/14/20 04:50 Abs Basophils (Manual) 0.0 10^3/uL (0.0-0.2) 04/14/20 04:50 Platelet Comment ADEQUATE 04/14/20 04:50 RBC Morph Comment NORMO-CYTIC/CHROMIC 04/14/20 04:50 ESR 84 mm/hr (0-20) H 04/13/20 10:28 D-Dimer 1.59 ug/mL (0.00-0.50) H 04/12/20 23:45 Sodium 138.0 mmol/L (137-145) 04/16/20 05:15 Potassium 4.5 mmol/L (3.6-5.0) 04/16/20 05:15 Chloride 101 mmol/L (98-107) 04/16/20 05:15 Carbon Dioxide 29 mmol/L (22-30) 04/16/20 05:15 Anion Gap 8 (5-19) 04/16/20 05:15 BUN 30 mg/dL (7-20) H 04/16/20 05:15 Creatinine 0.78 mg/dL (0.52-1.25) 04/16/20 05:15 Est GFR ( Amer) > 60 (>60) 04/16/20 05:15 Est GFR (MDRD) Non-Af > 60 (>60) 04/16/20 05:15 Glucose 86 mg/dL (75-110) 04/16/20 05:15 Calcium 8.1 mg/dL (8.4-10.2) L 04/16/20 05:15 Magnesium 2.9 mg/dL (1.6-2.3) H 04/16/20 05:15 Ferritin 523.00 ng/mL (17.9-464.0) H 04/13/20 10:28 Total Bilirubin 0.6 mg/dL (0.2-1.3) 04/16/20 05:15 Direct Bilirubin 0.2 mg/dL (0.0-0.4) 04/16/20 05:15 Neonat Total Bilirubin Not Reportable 04/16/20 05:15 Neonat Direct Bilirubin Not Reportable 04/16/20 05:15 Neonat Indirect Bili Not Reportable 04/16/20 05:15 AST 123 U/L (17-59) H 04/16/20 05:15 ALT 187 U/L (<50) H 04/16/20 05:15 Alkaline Phosphatase 88 U/L (38-126) 04/16/20 05:15 Lactate Dehydrogenase 485 U/L (120-246) H 04/12/20 23:45 Creatine Kinase 78 U/L (55-170) 04/12/20 23:45 C-Reactive Protein 176.1 mg/L (<10.0) H 04/13/20 10:28 NT-Pro-B Natriuret Pep 578 pg/mL (<450) H 04/12/20 17:40 Total Protein 5.7 g/dL (6.3-8.2) L 04/16/20 05:15 Albumin 2.8 g/dL (3.5-5.0) L 04/16/20 05:15 Procalcitonin 0.31 ng/mL (0.00-0.08) H 04/13/20 10:28 TSH 0.38 uIU/mL (0.47-4.68) L 04/14/20 04:50 Urine Color YELLOW 04/20/20 15:51 Urine Appearance SLIGHTLY-CLOUDY 04/20/20 15:51 Urine pH 5.0 (5.0-9.0) 04/20/20 15:51 Ur Specific [place] 1.024 04/20/20 15:51 Urine Protein NEGATIVE mg/dL (NEGATIVE) 04/20/20 15:51 Urine Glucose (UA) NEGATIVE mg/dL (NEGATIVE) 04/20/20 15:51 Urine Ketones NEGATIVE mg/dL (NEGATIVE) 04/20/20 15:51 Urine Blood NEGATIVE (NEGATIVE) 04/20/20 15:51 Urine Nitrite NEGATIVE (NEGATIVE) 04/20/20 15:51 Urine Bilirubin NEGATIVE (NEGATIVE) 04/20/20 15:51 Urine Urobilinogen NEGATIVE mg/dL (<2.0) 04/20/20 15:51 Ur Leukocyte Esterase NEGATIVE (NEGATIVE) 04/20/20 15:51 Urine WBC (Auto) 1 /HPF 04/20/20 15:51 Urine RBC (Auto) 3 /HPF 04/20/20 15:51 Urine Bacteria (Auto) TRACE /HPF 04/20/20 15:51 Squamous Epi Cells Auto <1 /HPF 04/20/20 05:30 Urine Mucus (Auto) FEW /LPF 04/20/20 15:51 Urine Ascorbic Acid 40 (NEGATIVE) H 04/20/20 15:51 COVID-19 Source See comment 04/12/20 17:17 COVID-19 (RM) DETECTED (Not Detect) A 04/12/20 17:17 Hepatitis A IgM Ab Negative (Negative) 04/13/20 10:28 Hep Bs Antigen Negative (Negative) 04/13/20 10:28 Hep B Core IgM Ab Negative (Negative) 04/13/20 10:28 Hepatitis C Antibody <0.1 s/co ratio (0.0-0.9) 04/13/20 10:28 Influenza A (Rapid) NEGATIVE (NEGATIVE) 04/12/20 17:50 Influenza B (Rapid) NEGATIVE (NEGATIVE) 04/12/20 17:50 Blood Type O POSITIVE 04/13/20 19:18 04/12/20 17:40 NT-Pro-B Natriuret Pep 578 H Impressions: Chest X-Ray 04/12/20 16:03 IMPRESSION: Constellation of findings suggests CHF exacerbation. Infectious etiology is not excluded. Chest/Abdomen CTA 04/13/20 00:00 IMPRESSION: Bilateral ground-glass opacities which could represent pulmonary edema or atypical pneumonia. No pulmonary emboli. Stable dilatation of the ascending aorta with largest diameter measured 5 0.0 cm. 9.2 mm subpleural nodule demonstrated on series 4, image 42. As discussed above this has increased in size from prior exam. Stroke Is this a Stroke Patient?: No Acute Heart Failure Is this a Heart Failure Patient?: No
== END 2020-04-20 18:52 | disposition home or self-care (01) | DRG 177 ==
LOC: ER 15:24 → EH 22:37 → 3W 04-13 18:09
PROVIDERS: ADMIT Student in an Organized Health Care Education/Training Program; ATTEND Family Medicine
PROC: XW033E5 Introduction of Remdesivir Anti-infective into Peripheral Vein, Percutaneous Approach, New Technology Group 5 (ICD-10-PCS; 2020-04-14)
PROC: XW13325 Transfusion of Convalescent Plasma (Nonautologous) into Peripheral Vein, Percutaneous Approach, New Technology Group 5 (ICD-10-PCS; principal; 2020-04-15)
PROC: B24BZZ4 Ultrasonography of Heart with Aorta, Transesophageal (ICD-10-PCS; 2020-04-15)
DX: U07.1 COVID-19 (principal); J12.89 Other viral pneumonia; J96.01 Acute respiratory failure with hypoxia; I11.0 Hypertensive heart disease with heart failure; I50.9 Heart failure, unspecified; I25.2 Old myocardial infarction; J44.9 Chronic obstructive pulmonary disease, unspecified; E03.8 Other specified hypothyroidism; E78.5 Hyperlipidemia, unspecified; R63.4 Abnormal weight loss; Z79.899 Other long term (current) drug therapy; Z79.890 Hormone replacement therapy
CPT/HCPCS: 36415; 36430; 71045; 71275; 80053; 80074; 81001; 82550; 82728; 83615; 83735; 83880; 84145; 84443; 85025; 85027; 85379; 85652; 86140; 86900; 86901; 87040; 87635; 87804; 93005; 93010; 93306; 96365; 96375; 99285; C9803; G0378; J0456; J1100; J1650; J3490; J7050; S0028